=== PATIENT | male | born 1950 | race Caucasian/White ===

== ENCOUNTER → 2017-02-14 | Outpatient (CLI) | payer OTHER, BC ==
[2017-02-14 08:09] LABS: BASO % 0.8 %; BASO ABS # 0.06 K/uL (0-0.2); COMPLETE YES; EOS % 1.8 %; HEMATOCRIT 47.8 % (42-52); IG% 0.3 %; LYMPH % 26.2 %; LYMPH ABS # 2.06 K/uL (1.2-3.4); MEAN CELL VOLUME 89.7 fL (80-100); MEAN CORPUSCULAR HEMOGLOBIN 30.2 pg (25-34); MEAN CORPUSCULAR HGB CONC 33.7 g/dl (32-36); MONO % 9.9 %; PLATELET COUNT 264 K/uL (130-400); RED BLOOD COUNT 5.33 M/uL (4.7-6.1); WHITE BLOOD COUNT 7.86 K/uL (4.8-10.8)
[2017-02-14 08:45] LABS: ALT/SGPT 19 U/L (12-78); BLOOD UREA NITROGEN 18 mg/dl (7-18); BUN/CREATININE RATIO 11.2 (10-20); CALCIUM 9.2 mg/dl (8.5-10.1); CARBON DIOXIDE 30 mmol/L (21-32); CHLORIDE 104 mmol/L (98-107); CHOLESTEROL 201 mg/dl (0-200); CREATININE 1.57 mg/dl (0.60-1.40); GLUCOSE 89 mg/dl (70-99); POTASSIUM 4.2 mmol/L (3.5-5.1); SODIUM 138 mmol/L (136-145); TRIGLYCERIDES 72 mg/dl (0-150); VERY LOW DENSITY LIPOPROT CALC 14 mg/dl
[2017-02-14 08:58] LABS: ALB/GLOB RATIO 1.2 (0.9-2); ALKALINE PHOSPHATASE 110 U/L (45-117); AST/SGOT 20 U/L (15-37); CHOLESTEROL/HDL RATIO 3.2; HDL CHOLESTEROL 62 mg/dl; LDL CHOLESTEROL CALCULATED 125 mg/dl
== END | disposition home or self-care (01) ==
LOC: C.LAB 07:03
PROVIDERS: ATTEND Internal Medicine
DX: Z12.5 Encounter for screening for malignant neoplasm of prostate (principal); I10 Essential (primary) hypertension

== ENCOUNTER → 2017-03-27 | Outpatient (CLI) | payer OTHER, BC ==
[2017-03-27 10:18] LABS: BLOOD UREA NITROGEN 17 mg/dl (7-18); CALCIUM 9.2 mg/dl (8.5-10.1); CARBON DIOXIDE 29 mmol/L (21-32); CREATININE 1.34 mg/dl (0.60-1.40); GLUCOSE 89 mg/dl (70-99); POTASSIUM 4.3 mmol/L (3.5-5.1); SODIUM 139 mmol/L (136-145)
== END | disposition home or self-care (01) ==
LOC: C.LAB 08:59
PROVIDERS: ATTEND Internal Medicine
DX: I10 Essential (primary) hypertension (principal)

== ENCOUNTER 2020-05-20 15:03 | Inpatient (IN) ==
[2020-05-20] MEDS ORDERED: ASPIRIN CHEW 324 MG PO STA (15:21)
[2020-05-20] MEDS ORDERED: SODIUM CHLORIDE 0.9% 500 ML IV STA (15:21)
--- NOTE | 2020-05-20 15:25 | Emergency Department Note ---
Impression & Plan Acute ST elevation myocardial infarction (STEMI), Acute NJ, inferior wall, Myocardial infarction, posterior wall ED Provider Note NAME: RIGOBERTO STOLL AGE: 69 SEX: M : 1950 ARRIVES VIA: Walk-In INFORMANT: Patient, ED PROVIDER(S): Florian Swift DO CHIEF COMPLAINT: Chest pain HPI: The patient is a 69-year-old male who presented to the emergency department via triage for an evaluation of chest pain. The patient has been having intermittent chest pain over the course of the last 10 days. He presented to the emergency department with his significant other. Apparently the patient has a history of going on walks and exercising frequently with his significant other. Over the course of the last week and a half the patient's been noticing decrease exercise tolerance as well as fatigue. He is also noticed that he has been developing chest pain which is retrosternal over the course the last 10 days associated with exertion and relieved with rest. He notices some discomfort in his left jaw as well as his left shoulder. He denies having any back pain. He describes the pain as a pressure which is intermittent. He went for a long walk with his significant other today and afterwards noticed that he was having chest pain which did not relieve. The patient states that he has been compliant with his outpatient medication regimen. He does have a history of reflux and initially thought that was the cause of his symptoms. He states the pain was moderate to severe with ambulation but at this time is approxi mately 1-2 on a scale of 10 and describes it is mild. He denies having any fever or cough. He denies any recent traveling. He denies any shortness of breath at this time. ROS: See above HPI for pertinent positives & negatives. A total of 10 systems reviewed and were otherwise negative. PAST MEDICAL HISTORY: See Below PAST SURGICAL HISTORY: See Below FAMILY HISTORY: See Below SOCIAL HISTORY: See Below HOME MEDICATIONS: See Below ALLERGIES: See Below VITALS: See Below PHYSICAL EXAMINATION: GENERAL: The patient is awake and alert. He is somewhat anxious appearing. EYES: The conjunctivae are clear. The pupils are round and reactive. EARS, NOSE, MOUTH AND THROAT: The nose is without any evidence of any deformity. NECK: The neck is nontender and supple. RESPIRATORY: Normal respiratory effort is noted there is no evidence of wheezing rhonchi or rales CARDIOVASCULAR: Regular rate and rhythm noted there no murmurs rubs or gallops normal S1 normal S2. GASTROINTESTINAL: The abdomen is soft. Abdomen is nontender. MUSCULOSKELETAL/EXTREMITIES: There is no evidence of gross deformity full range of motion is noted in the hips and shoulders. SKIN: There is no obvious evidence of any rash. No significant pedal edema was noted. NEUROLOGIC: Patient is awake alert and oriented x3. MEDICAL DECISION MAKING: The patient is a 69-year-old male who presented to the emergency department for an evaluation of chest pain. The patient has been experiencing intermittent episodes of chest pain over the last 10 days. The pain is been worsening with exertion. According to his significant other he is also been having easy f atigue and does appear to be experiencing more discomfort than he is relating in the emergency department today. Normally the pain resolves with rest. Today the patient went on his normal hike with his significant other but afterwards the chest pain did not resolve. He was brought back to his room C4 and an EKG was done. I made the patient a heart alert immediately after reading the patient's EKG which revealed an inferior posterior wall NJ. The patient did have Q waves which does fit with a subacute presentation. His troponin was elevated. He was treated with aspirin in the emergency department. He was also given Brilinta and heparin after evaluation by the lithographer helper. I discussed the patient's laboratory and radiographic studies with him. I also discussed his case with the lithographer helper. He was immediately taken to the cardiac catheterization lab. He was agreeable with the plan. Triage Nursing notes reviewed. Prior medical records reviewed Vital Signs: reviewed and remarkable for low blood pressure. Differential diagnosis: Cardiac ischemia, aortic dissection, pulmonary embolism, pneumothorax, pneumonia, pericarditis, myocarditis, esophageal rupture, GERD, cholecystitis, pancreatitis, musculoskeletal, as well as other pathologies. ER treatment provided: See below Diagnostics interpreted by me: ECG: EKG revealed normal sinus rhythm at 73 bpm. Inferior Q waves were noted with acute ST segment elevation in the inferior leads. There is also reciprocal changes in the high lateral leads. There is also ST segment depression in the anterior leads with upright T waves. I do feel this is consistent with an inferior posterior wall myocardial infarction which is acute to subacute. No previous tracing was available. Cardiac Monitoring: An order was placed for continuous cardiac monitoring. The monitor shows a rate of 88 bpm with sinus rhythm. Laboratory studies: As stated above and show below. Imaging studies: See below Consultation(s): Dr. Luo responded to the heart alert. He was at the bedside evaluating the patient and received signout from myself. The patient was felt to be a good candidate for cardiac catheterization. ED COURSE: Procedures: none PDMP:reviewed and no issues Critical Care: I have personally spent greater than 35 minutes of critical care time in the direct management of this patient. This includes bedside care, interpretation of diagnostic studies, and testing, discussion with consultants, patient, and family members, and other required patient management activities. This 35 minutes is in excess of all separately billable procedures. Past Med/Surg History Medical History (Updated 05/20/20 @ 20:23 by Florian Swift DO) Acid reflux Hypertension Male erectile disorder of organic origin Screening PSA (prostate specific antigen) Syncope Tubular adenoma of colon Surgical History History of colonoscopy History of tonsillectomy Family History Mother Colon cancer Father Cardiac disorder Hypertension Myocardial infarction Father Cardiac disorder Hypertension Myocardial infarction Brother Cardiac disorder Hypertension Social History Smoking Status: Never smoker Hx Alcohol Use: No Hx Substance Use: No Preferred Language: Luxembourger Hearing Ability: Normal Veterans Adviser Required: No Beliefs That Will Affect Care: None marital status: Current Living Situation: Alone current occupational status: retired Other Information That Helps Us Care for You: No Feels Safe at Home: Yes Safety Concerns: Feels Safe At This Time caffeine: Yes Seatbelt Use: always Sunscreen Use: No Assistive Devices: None Allergies Allergies Allergy/AdvReac Type Severity Reaction Status Date / Time Sulfa (Sulfonamide Allergy Unknown Unknown Verified 05/20/20 15:51 Antibiotics) Home Meds Home Medications Medication Instructions Recorded Confirmed ascorbic acid (vitamin C) 500 mg 500 mg PO QAM 04/25/20 05/20/20 tablet aspirin 81 mg PO QAM 05/20/20 05/20/20 losartan 12.5 mg PO QAM 05/20/20 05/20/20 Results & Data (ED) Vital Signs Vital Signs - 24 hr 05/20/20 15:10 05/20/20 15:58 05/20/20 17:37 Temperature 36.3 C L Temperature Source Temporal Artery Scan Pulse Rate 78 85 Pulse Rate from SpO2 Sensor Respiratory Rate 18 18 Blood Pressure 183/114 H Blood Pressure Mean 137 Pulse Oximetry 100 Oxygen Delivery Method Room Air Nasal Cannula Oxygen Flow Rate 2 Sepsis Recent Fever Within 48 Hours No Sepsis New/Unexplained Change in Mental Status N/A Sepsis Action Taken by Nursing No Action Required 05/20/20 17:38 05/20/20 17:40 Temperature Temperature Source Pulse Rate 72 77 Pulse Rate from SpO2 Sensor 77 Respiratory Rate 20 17 Blood Pressure 124/86 Blood Pressure Mean 98 Pulse Oximetry 100 Oxygen Delivery Method Oxygen Flow Rate Sepsis Recent Fever Within 48 Hours Sepsis New/Unexplained Change in Mental Status Sepsis Action Taken by Group Home Medications Current Medication List: was personally reviewed by me Laboratory Data Attestation: I reviewed the patient's lab results. Result diagrams: 05/20/20 15:28 05/20/20 15:28 Lab Results 05/20/20 05/20/20 05/20/20 Range/Units 15:28 15:28 15:28 WBC 13.38 H (4.8-10.8) K/uL RBC 5.13 (4.7-6.1) M/uL Hgb 15.7 (14.0-18.0) g/dL Hct 45.5 (42-52) % MCV 88.7 (80-100) fL MCH 30.6 (25-34) pg MCHC 34.5 (32-36) g/dL RDW Std Deviation 43.4 (36.4-46.3) fL RDW Coeff of Park 13.3 (11.5-14.5) % Plt Count 259 (130-400) K/uL MPV 10.0 (7.4-10.4) fL Immature Gran % (Auto) 0.1 % Neut % (Auto) 79.4 % Lymph % (Auto) 12.1 % Hendricks % (Auto) 8.1 % Eos % (Auto) 0.1 % Baso % (Auto) 0.2 % Neut # (Auto) 10.60 H (1.4-6.5) K/uL Lymph # (Auto) 1.62 (1.2-3.4) K/uL Hendricks # (Auto) 1.09 H (0.11-0.59) K/uL Eos # (Auto) 0.02 (0-0.5) K/uL Baso # (Auto) 0.03 (0-0.2) K/uL Immature Gran # (Auto) 0.02 (0.00-0.02) K/uL PT 9.9 (9.0-12.0) Seconds INR 1.0 (0.9-1.1) APTT 24.8 (21.0-31.0) Seconds PTT Ratio 0.9 Activ Coag Time Kaolin (94-140) SECONDS Sodium 139 (136-145) mmol/L Potassium 3.6 (3.5-5.1) mmol/L Chloride 104 (98-107) mmol/L Carbon Dioxide 28 (21-32) mmol/L Anion Gap 7.0 (3-11) BUN 15 (7-18) mg/dl Creatinine 1.45 H (0.6-1.4) mg/dl Est Cr Clr Drug Dosing 49.5 ml/min Est GFR ( Amer) 56.1 Est GFR (Non-Af Amer) 48.4 BUN/Creatinine Ratio 10.3 (10-20) Glucose 135 H (70-99) mg/dl Calcium 9.6 (8.5-10.1) mg/dl Total Bilirubin 0.7 (0.2-1) mg/dl AST 160 H (15-37) U/L ALT 37 (12-78) U/L Alkaline Phosphatase 128 H (45-117) U/L Troponin I 16.600 H* (0-0.045) ng/ml Total Protein 7.2 (6.4-8.2) gm/dl Albumin 4.1 (3.4-5.0) gm/dl Globulin 3.1 (2.5-4.0) gm/dl Albumin/Globulin Ratio 1.3 (0.9-2) Lipase 74 (73-393) U/L 05/20/20 Range/Units 16:29 WBC (4.8-10.8) K/uL RBC (4.7-6.1) M/uL Hgb (14.0-18.0) g/dL Hct (42-52) % MCV (80-100) fL MCH (25-34) pg MCHC (32-36) g/dL RDW Std Deviation (36.4-46.3) fL RDW Coeff of Park (11.5-14.5) % Plt Count (130-400) K/uL MPV (7.4-10.4) fL Immature Gran % (Auto) % Neut % (Auto) % Lymph % (Auto) % Hendricks % (Auto) % Eos % (Auto) % Baso % (Auto) % Neut # (Auto) (1.4-6.5) K/uL Lymph # (Auto) (1.2-3.4) K/uL Hendricks # (Auto) (0.11-0.59) K/uL Eos # (Auto) (0-0.5) K/uL Baso # (Auto) (0-0.2) K/uL Immature Gran # (Auto) (0.00-0.02) K/uL PT (9.0-12.0) Seconds INR (0.9-1.1) APTT (21.0-31.0) Seconds PTT Ratio Activ Coag Time Kaolin 312 H (94-140) SECONDS Sodium (136-145) mmol/L Potassium (3.5-5.1) mmol/L Chloride (98-107) mmol/L Carbon Dioxide (21-32) mmol/L Anion Gap (3-11) BUN (7-18) mg/dl Creatinine (0.6-1.4) mg/dl Est Cr Clr Drug Dosing ml/min Est GFR ( Amer) Est GFR (Non-Af Amer) BUN/Creatinine Ratio (10-20) Glucose (70-99) mg/dl Calcium (8.5-10.1) mg/dl Total Bilirubin (0.2-1) mg/dl AST (15-37) U/L ALT (12-78) U/L Alkaline Phosphatase (45-117) U/L Troponin I (0-0.045) ng/ml Total Protein (6.4-8.2) gm/dl Albumin (3.4-5.0) gm/dl Globulin (2.5-4.0) gm/dl Albumin/Globulin Ratio (0.9-2) Lipase (73-393) U/L Administered Medications Dopamine HCl/Dextrose (Dopamine / D5w) 400 mg in 250 mls @ 7.078 mls/hr IV .Q24H PATIENCE; Protocol Stop: 06/19/20 19:14 Last Admin: 05/20/20 19:21 Dose: 2.5 mcg/kg/min, 7.1 mls/hr Documented by: [id number] Cosigned by: [id number] Discontinued Medications Aspirin (Aspirin Chew 324 Mg) 324 mg PO NOW STA Stop: 05/20/20 15:22 Last Admin: 05/20/20 15:29 Dose: 324 mg Documented by: [id number] Atropine Sulfate (Atropine Sulfate 0.1 Mg/Ml 10ml Syr) Confirm Administered Dose 1 mg IV .STK-MED ONE Stop: 05/20/20 19:10 Last Admin: 05/20/20 19:20 Dose: 1 mg Documented by: [id number] Dopamine HCl/Dextrose (Dopamine 400mg / 250ml D5w (Operating Room Nurse Use Only)) Confirm Administered Dose 400 mg .ROUTE .STK-MED ONE Stop: 05/20/20 16:47 Last Admin: 05/20/20 17:14 Dose: 5 mg.per.kg Documented by: [id number] Dopamine HCl/Dextrose (Dopamine 400mg / 250ml D5w) Confirm Administered Dose 400 mg IV .STK-MED ONE Stop: 05/20/20 19:15 Last Admin: 05/20/20 19:19 Dose: Not Given Documented by: [id number] Fentanyl Citrate (Fentanyl Citrate 100 Mcg/2 Ml Vial) Confirm Administered Dose 100 mcg .ROUTE .STK-MED ONE Stop: 05/20/20 15:40 Last Increment: 05/20/20 17:14 Dose: 75 mcg Documented by: [id number] Heparin Sodium (Porcine) (Heparin Sod (Porcine) 1000 Unit/Ml 10 Ml Vial) Confirm Administered Dose 10,000 units .ROUTE .STK-MED ONE Stop: 05/20/20 15:32 Last Admin: 05/20/20 17:07 Dose: 10,000 units Documented by: [id number] Cosigned by: [id number] Heparin Sodium (Porcine) (Heparin (Porcine) 1000 Unit/Ml 10 Ml (Operating Room Nurse Use Onl y)) Confirm Administered Dose 10,000 units .ROUTE .STK-MED ONE Stop: 05/20/20 15:40 Last Admin: 05/20/20 17:14 Dose: 1,000 units Documented by: [id number] Heparin Sodium/Sodium Chloride (Heparin In Nss Infusion 1000 Unit/500 Ml (2 U/Ml) Bag) Confirm Administered Dose 3,000 units IV .STK-MED ONE Stop: 05/20/20 15:41 Last Admin: 05/20/20 17:14 Dose: 3,000 units Documented by: [id number] Sodium Chloride (Nss) 500 mls @ 999 mls/hr IV .Q31M STA Stop: 05/20/20 15:51 Last Admin: 05/20/20 15:37 Dose: 999 mls/hr Documented by: [id number] Midazolam HCl (Midazolam Hcl 1 Mg/Ml 2ml Vial) Confirm Administered Dose 2 mg .ROUTE .STK-MED ONE Stop: 05/20/20 15:40 Last Admin: 05/20/20 17:14 Dose: 2 mg Documented by: [id number] Nicardipine HCl (Nicardipine Hcl Inj 2.5 Mg/Ml 10 Ml Amp) Confirm Administered Dose 25 mg .ROUTE .STK-MED ONE Stop: 05/20/20 15:40 Last Admin: 05/20/20 17:07 Dose: 25 mg Documented by: [id number] Nitroglycerin/Dextrose (Nitroglycerin/D5w 100mcg/Ml 20ml Syr) Confirm Administered Dose 2,000 mcg .ROUTE .STK-MED ONE Stop: 05/20/20 15:41 Last Admin: 05/20/20 17:14 Dose: 2,000 mcg Documented by: [id number] Ondansetron HCl (Ondansetron Inj 2 Mg/Ml 2 Ml Vial) Confirm Administered Dose 4 mg .ROUTE .STK-MED ONE Stop: 05/20/20 16:50 Last Admin: 05/20/20 17:28 Dose: 4 mg Documented by: [id number] Ticagrelor (Ticagrelor 90 Mg Tab) Confirm Administered Dose 180 mg PO .STK-MED ONE Stop: 05/20/20 15:32 Last Admin: 05/20/20 17:03 Dose: 180 mg Documented by: [id number] Imaging Data Radiologist's Impression: Patient: RIGOBERTO STOLL Date: 05/20/20#: [id number]: [id number] [facility]:[id number]: Date: 1950[facility] Zip: [place], [place] [address]Ruc: 69Location: EDSex: MRoom/Bed:Att Phy:Diagnosis: CHEST PAIN x12 HOURSPri Phy: Dallas Vincent, III, MDService Date: 05/20/20Fam Phy:Interpreting Phy: Juan Sparrow MDAdmit Phy: Ordering Phy: Florian Swift DO cc: ~ XR chest 1V portable CLINICAL HISTORY: Atypical chest pain COMPARISON STUDY: No previous studies for comparison. FINDINGS: The heart is normal in size. There is aortic tortuosity/ectasia. There is no failure. There is no focal pulmonary consolidation. There are no pleural effusions.[ IMPRESSION: No active disease in the chest. ACT 112: Negative or not required by law. Electronically signed by: Juan Sparrow M.D. 05/20/2020 3:46 PM Dictated: 05/20/20 1545Transcribed: 05/20/20 1545 Discharge Plan Visit Data Chief Complaint: Chest Pain Stated Complaint: CHEST PAIN x12 HOURS ED Provider: Florian Swift Discharge Problem: Acute ST elevation myocardial infarction (STEMI), Acute [place], inferior wall, Myocardial infarction, posterior wall Patient Disposition: Admitted As Inpatient Condition: Good Discharge Instructions Interventions: ED Discharge Assessment Last Done: 05/20/20 15:58 Discharge Problem: Acute ST elevation myocardial infarction (STEMI) Qualifiers: Involved coronary artery: unspecified coronary artery Qualified Code(s): I21.3 - ST elevation (STEMI) myocardial infarction of unspecified site
[2020-05-20] MEDS ORDERED: HEPARIN SOD (PORCINE) 1000 UNIT/ML ONE (15:31)
[2020-05-20] MEDS ORDERED: TICAGRELOR 90 MG TAB PO ONE (15:31)
[2020-05-20 15:38] LABS: Basophils # (auto) 0.03 K/uL (0-0.2); Basophils % (auto) 0.2 %; Eosinophils # (auto) 0.02 K/uL (0-0.5); Eosinophils % (auto) 0.1 %; Hematocrit (blood only) 45.5 % (42-52); Hemoglobin 15.7 g/dL (14.0-18.0); Immature Granulocytes # (auto) 0.02 K/uL (0.00-0.02); Immature Granulocytes % (auto) 0.1 %; Lymphocytes # (auto) 1.62 K/uL (1.2-3.4); Lymphocytes % (auto) 12.1 %; Mean Corpuscular Hemoglobin 30.6 pg (25-34); Mean Corpuscular Hgb Conc 34.5 g/dL (32-36); Mean Corpuscular Volume 88.7 fL (80-100); Monocytes # (auto) 1.09 K/uL (0.11-0.59); Monocytes % (auto) 8.1 %; Neutrophils % (auto) 79.4 %; Platelet Count 259 K/uL (130-400); RDW Coefficient of Variation 13.3 % (11.5-14.5); RDW Standard Deviation 43.4 fL (36.4-46.3); Red Blood Count 5.13 M/uL (4.7-6.1); White Blood Count 13.38 K/uL (4.8-10.8)
[2020-05-20] MEDS ORDERED: HEPARIN (PORCINE) 1000 UNIT/ML 10 ML (CATH LAB USE ONLY) ONE (15:39)
[2020-05-20] MEDS ORDERED: fentaNYL citrate 100 MCG/2 ML VIAL ONE (15:39)
[2020-05-20] MEDS ORDERED: MIDAZOLAM HCL 1 MG/ML 2ML VIAL ONE (15:39)
[2020-05-20] MEDS ORDERED: niCARdipine HCL INJ 2.5 MG/ML 10 ML AMP ONE (15:39)
[2020-05-20] MEDS ORDERED: NITROGLYCERIN/D5W 100MCG/ML 20ML SYR ONE (15:40)
--- NOTE | 2020-05-20 15:47 | XRay Report ---
XR chest 1V portable CLINICAL HISTORY: Atypical chest pain COMPARISON STUDY: No previous studies for comparison. FINDINGS: The heart is normal in size. There is aortic tortuosity/ectasia. There is no failure. There is no focal pulmonary consolidation. There are no pleural effusions.[ IMPRESSION: No active disease in the chest. ACT 112: Negative or not required by law. Electronically signed by: Juan Sparrow M.D. 05/20/2020 3:46 PM
[2020-05-20 15:49] LABS: Partial Thromboplastin Ratio 0.9; Partial Thromboplastin Time 24.8 Seconds (21.0-31.0); Prothrombin Time 9.9 Seconds (9.0-12.0)
[2020-05-20 15:57] LABS: Albumin Level 4.1 gm/dl (3.4-5.0); BUN Creatinine Ratio 10.3 (10-20); Calcium 9.6 mg/dl (8.5-10.1); Creatinine Clr Calc Pharmacy 49.5 ml/min; Est GFR (African American) 56.1; Est GFR (Non-African American) 48.4; Potassium 3.6 mmol/L (3.5-5.1)
--- NOTE | 2020-05-20 16:02 | Pre Anesthesia Assessment ---
Date of Service May 20, 2020 Pre Sedation Assessment Vital Signs Temp Pulse Resp BP Pulse Ox 05/20/20 15:10 97.3 F L 78 18 183/114 H 100 Cardiovascular RRR, no murmur, no edema Respiratory normal respiratory effort, lungs clear to auscultation Pre-Sedation Airway Assessment Smoking Status: Never smoker Hx Sleep Apnea: No Hx Difficult Intubation: No Short, Thick Neck: No Thyromental Distance: > or= 3.5 Finger Breadths Oral Cavity: + WNL Mallampati Class: III ASA: ASA3 Procedure Planning Contraindications for Sedation: none Current Medications Reviewed: Yes Notes The planned sedation has been discussed with the patient. Informed Consent was obtained. I have identified the patient, determined the appropriateness of sedation and have assessed the patient immediately prior to the procedure. All medicine(s) and interventions are by my order.
--- NOTE | 2020-05-20 16:05 | Cardiology Consultation ---
Date of Consultation May 20, 2020 Assessment & Plan (1) Acute DC: Presentation consistent with inferior STEMI and recommend proceeding with emergent cardiac catheterization and likely primary PCI. No apparent contraindications to procedure. Discussed risks, benefits, alternatives of procedure with patient and they are willing to proceed. Given IV heparin and ticagrelor 180 mg in the ED. Further recommendations pending findings of coronary angiography. History of Present Illness History of Present Illness 69-year-old man here with acute chest pain and ECG concerning for acute DC. Patient seen emergently in the ED after heart alert activated on arrival. No prior cardiac history. Cardiac risk factors include hypertension, dyslipidemia and family history of premature CAD. Other medical issues include GERD and colonic polyps. Chest pain has been intermittent for the last week. Describes burning chest discomfort associated with belching. Pain has been persistent all day today, partially relieved with Tylenol. Chest pain at time of arrival 2-05/09. Hypertensive to the 200. EKG showed inferior ST elevations Allergies Allergy/AdvReac Type Severity Reaction Status Date / Time Sulfa (Sulfonamide Allergy Unknown Unknown Verified 05/20/20 15:51 Antibiotics) Home Medications Medication Instructions Recorded Confirmed Type ascorbic acid (vitamin C) 500 mg 500 mg PO QAM 04/25/20 05/20/20 History tablet aspirin 81 mg PO QAM 05/20/20 05/20/20 History losartan 12.5 mg PO QAM 05/20/20 05/20/20 History Patient History Medical History (Updated 05/20/20 @ 16:05 by Gera Luo MD) Acid reflux Hypertension Male erectile disorder of organic origin Screening PSA (prostate specific antigen) Syncope Tubular adenoma of colon Surgical History History of colonoscopy History of tonsillectomy Family History Mother Colon cancer Father Cardiac disorder Hypertension Myocardial infarction Father Cardiac disorder Hypertension Myocardial infarction Brother Cardiac disorder Hypertension Social History Smoking Status: Never smoker Hx Alcohol Use: No Hx Substance Use: No Preferred Language: Turkmen Hearing Ability: Normal marital status: Current Living Situation: Spouse current occupational status: retired Feels Safe at Home: Yes caffeine: Yes Seatbelt Use: always Sunscreen Use: No Review of Systems Review of Systems: Not obtained in the setting of urgent situation Physical Exam Physical Exam: General: Comfortable HEENT: Sclerae anicteric, Mask in place Lungs: Clear to auscultation bilaterally Cardiac: Regular rate and rhythm, no murmurs. Vascular: 2+ radial Abdomen: Soft, nontender Extremities: Well perfused, no peripheral edema Neuro: Nonfocal Psych: Alert orient x3, normal affect and mood Results & Data ([facility]) Vital Signs (Past 12 Hours) Vital Signs Temp Pulse Resp BP Pulse Ox 05/20/20 15:10 97.3 F L 78 18 183/114 H 100 PG Care Time/CCT Total # of Minutes Spent Total Time Spent with Patient: Total time spent is greater than 50% in coordination of care (as documented) at patient's floor/unit and/or counseling patient: Coding Level of Care Code 44725 Initial Inpt Care Lvl 3 Diagnoses Acute DC I21.9
[2020-05-20 16:13] LABS: Albumin Globulin Ratio 1.3 (0.9-2); Bilirubin,Total 0.7 mg/dl (0.2-1); Globulin 3.1 gm/dl (2.5-4.0); Total Protein 7.2 gm/dl (6.4-8.2); Troponin I 16.6 ng/ml (0-0.045)
[2020-05-20] MEDS ORDERED: DOPamine 400MG / 250ML D5W (Cath Lab Use ONLY) ONE (16:46)
[2020-05-20] MEDS: ONDANSETRON INJ 2 MG/ML 2 ML VIAL ONE ×2 (17:16→17:28)
--- NOTE | 2020-05-20 17:37 | Post Anesthesia Assessment ---
Date of Service May 20, 2020 Post Sedation Assessment Vital Signs Temp Pulse Resp BP Pulse Ox 05/20/20 15:10 97.3 F L 78 18 183/114 H 100 Recovery Score Activity: Moves 4 extremities Respiration: Deep Breath/Cough Circulation: +/-20% PreAnes Value Consciousness: Fully Awake Oxygen Saturation: O2 needed for >90% Discharge Sedation Level of Care: Fast Track Phase II Post Sedation Plan On clinical assessment, the patient appears to have tolerated the sedation without complications. Patient is recovering as anticipated. Patient will continue to be monitored by nursing and may be discharged when sedation discharge criteria are met per below protocol. Upon Completions of procedure up to 15 minutes continue every 5 minute vital signs and the P.A.R. score; then discharge to a Phase I or Fast Track to Phase II per the following guidelines: * Discharge Patient to appropriate Phase II area if PAR is 8 or greater or return to pre- procedure baseline. The post - procedure orders will be as directed. * If PAR score is less than 8 or not return to pre-procedure baseline then patient will follow Phase I monitoring till PAR is reached for Phase II. The Phase I may be done in procedure room or may call to secure a Phase I area. * If naloxone or flumazenil are used for reversal, hold in Phase I for continued monitoring from when last reversal dose was given for a minimum of 60 minutes or longer pending the nurse and/or physician discretion of patient condition before discharge to Phase II. Please call the Sedation Physician to re-evaluate and complete post-note for discharge to Phase II area. Do NOT discharge from procedure sedation or Phase 1 until post- sedation evaluation note is complete by procedure /sedation MD Sedation Discharge Instructions to be given to the patient at discharge to home.
[2020-05-20] MEDS ORDERED: ACETAMINOPHEN 325 MG TAB PO PRN (17:43)
[2020-05-20] MEDS ORDERED: NITROGLYCERIN SL 0.4 MG/TAB TAB SL PRN (17:43)
--- NOTE | 2020-05-20 17:43 | Cardiac Catheterization ---
[facility] Data: [employer]way Engineer Cardiac Status Clinical evaluation leading to the procedure CAD Presenation: STEMI Anginal Classification: CCS IV Heart Failure: No Cardiogenic Shock within 24 Hours: No Cardiac Arrest within 24 Hours: No Imaging Studies Past 6 Months: No Stress Studies Past 6 Months: No Diagnostic Physicians Name: Lavelle Luo MD Status: Emergency Closure Device Percutaneous Entry Location: Radial Closure Device: Radial Band Recommendations: PCI without planned CABG PCI Indication: Immediate PCI for STEMI First Noted: First EKG Lesion Segment Name: mid RCA Culprit Artery: Yes Stenosis Prior to Rx (%): 100 Chronic Total Occlusion: No IVUS: Yes FFR: No Pre-Procedure NATHANIEL Flow: 0 Previously Treated Lesion: No Lesion Complexity: High/C Lesion Length (mm): 15 Thrombus Present: Yes Bifurcation Lesion: No Guidewire Across Lesion: Stenosis Post-Procedure (%): 0 Post-Procedure NATHANIEL Flow: 3 Devices(s) Deployed: Yes Yes Intraprocedure Events Significant Disection: No Perforation: No Cardiac Cath Procedure Full Procedure Date May 20, 2020 Pre-Procedure Diagnosis Pre-Procedure Diagnosis: STEMI AUC Score AUC Score: 9 Post-Procedure Diagnosis Post-Procedure Diagnosis: Severe CAD, Successful PCI and Normal Intracardiac Pressures Procedure(s) Performed Procedure(s) Performed: Coronary Angiography, Left Heart Cath, Drug Eluting Stent and IVUS Patient Partner Lavelle Luo MD Systems Administrator(s) Olga Estimated Blood Loss Estimated Blood Loss: 20 Medication(s) Medication(s): Aspirin, Fentanyl, Heparin, Lidocaine 1%, Nicardipine, Nitroglycerin and Versed Medication(s): Ticagrelor Summary of Findings Indication: STEMI/Heart Alert Access: 6Fr right radial artery Catheters: [place], JR4 guide, diagnostic JR4 Findings: LM -normal caliber, long vessel, luminal irregularities LAD -medium caliber, diffuse severe proximal to mid disease with 90% stenosis at takeoff of D1, 95% at first septal. 80% latemid LAD stenosis. Large bifurcating first diagonal with 80% proximal disease. Circumflex -medium caliber, large high OM1 without significant disease. Mid ci rcumflex with 30% disease. RCA -dominant, normal caliber, 80% ostial, 100% acute on chronic mid occlusion. Right PLB, PDA partially fills via [id number] collaterals. LVEDP - 15 -- PCI -- Antithrombotic therapy: Heparin, ticagrelor Procedure: RCA cannulated with JR4 guide [employer] 50 wire passed across lesion into distal vessel Mid RCA lesion predilated with 2.5 compliant balloon Bryson IVUS catheter placed into distal RCA. Pullback revealed no significant disease in distal and late-mid RCA. Minimally calcified, thrombotic plaque in early mid RCA. Severe stenosis primarily involving ostium. Dilated mid RCA 3.5 x 18 mm [place] drug-eluting stent Ostium of RCA dilated gently with 3.5 stent balloon Stent post-dilated with 3.5 noncompliant balloon IC vasodilators administered for spasm Ostium of RCA stented with 3.5 x 15 mm Xience drug-eluting stent Stent postdilated with 3.5 NC IC vasodilators administered Post procedure NATHANIEL 3 flow, stents well expanded with minimal residual stenosis and no apparent cardiac complications. Intraprocedure course complicated by bradycardia and hypotension requiring 0.5 mg atropine and IV fluids, transient dopamine infusion. Vasopressors weaned off at completion of case. Arterial Closure: TR band Summary: 1. Inferior STEMI/100% acute on chronic mid RCA occlusion 2. Severe non-culprit coronary artery disease -Diffuse proximal to mid LAD up to 95%. Latemid LAD 80%. Proximal D1 80% 3. Normal intracardiac filling pressure 4. Successful PCI of ostial RCA stenosis and mid RCA occlusion with 2 nonoverlapping drug-eluting stents (3.5 x 15 mm Xience, 3.5 x 18 mm Landon). Recommendations: Admit to ICU for continued monitoring Loaded with ticagrelor 180 mg in Roadway Engineer Continue dual-antiplatelet therapy for at least 1 year. Trend troponins until peak, Check Echo Uptitrate beta-julienne/RENE as BP allows High-dose statin Consult cardiac Rehab Plan for staged PCI of LAD, diagonal at some point during hospitalization as renal function allows. Hemodynamics Rest Ao:: 166/94/129 Final Ao: 122/61/84 LV: 126/15 Recommendations Recommendations: PCI without planned CABG Specimens Specimens: None Radiation Exposure (mGy) 1993 Contrast (mls) 145 Fluids (cc crystalloids) Fluids (cc crystalloids): 435 Drains Drains: none Anesthesia moderate [id number] Procedural Complication(s) None Disposition ICU I attest to the content of the Intraoperative Record and any orders documented therein. Any exceptions are noted below. [facility] Card Cath Procedure Codes Cardiac Catheterization Procedure 1: Cardiovascular Cath Procedures: 13692 Coronaries and LHC (+/-LV) Therapeutic Services & Ancillary Proc Procedure 1: Cardiovascular Tx and Anc Procedures: 13843 IV Ultrasound (Coronary or Graft) Moderate Sedation Procedure 1: Sedation/Anesthesia: 68355 Mod Sedation by the same physician;Init15 Min Child Age 5 & Up Procedure 2: Sedation/Anesthesia: 50989 Mod Sedation by the same physician; Ea [id number] Minutes Stenting Procedure 1: Cardiovascular Stent Procedures: 06518 Perc transluminal revascularization of acute sub/total occl, aMI PG Care Time/CCT Total # of Minutes Spent Total Time Spent with Patient: Total time spent is greater than 50% in coordination of care (as documented) at patient's floor/unit and/or counseling patient:
[2020-05-20] MEDS ORDERED: SODIUM CHLORIDE 0.9% 1000ML 1,000 ML IV SCH (17:45)
[2020-05-20] MEDS ORDERED: ICU PROTOCOL FOR HYPERGLYCEMIA PRN (17:48)
--- NOTE | 2020-05-20 17:56 | Post Operative Brief Note ---
Cardiology Brief Post Op Date of Surgery May 20, 2020 Pre & Post Diagnosis Acute NH Procedure -- Rug Dyer Lavelle Luo MD Card Hanger Olga Estimated Blood Loss 15 Findings Consistent with Post-Op Diagnosis 80% ostial RCA, 100% acute on chronic mid RCA LAD - diffuse 90% proximal to mid LAD disease, 80% late-mid disease. Proximal bifurcating D1 with 80% proximal stenosis LM - no disease Circumflex - no disease Successful PCI of ostial RCA and mid RCA with 2 non-overlapping DINESH (3.5 x 15 Xience; 3.5 x 18 Landon). Plan for staged PCI of LAD later this hospitalization Fluids -- Specimens Specimen Description: -- Anesthesia Type RN Sedation Complications none Disposition Accompanied Patient To Recovery: No Disposition: Surgical ICU Overlapping Procedure I was present for: the critical portions of procedure. I was immediately available: during the entire case. Back up surgeon: was not required during procedure.
--- NOTE | 2020-05-20 18:13 | History & Physical Report ---
Date of Service May 20, 2020 Assessment & Plan (1) Acute ST elevation myocardial infarction (STEMI): Appreciate cardiology management ASA, Brillianta, Atorvastatin Metoprolol and losartan with hold parameters (2) Hypotension: BP 80/55 when seen, patient alert and orientated. Discussed with ICU team to appropriately manage. (3) Hypertension: Metoprolol and losartan as above with hold parameters Patient reports usual fluctuating blood pressure usually at home (4) Hypercholesteremia: Lipid panel in AM Atorvastatin 80mg PO HS (5) Acid reflux: None currently. Monitor Admission and Anticipated Discharge Date Admission Date: May 20, 2020 History of Present Illness Chief Complaint: Chest pain Primary Care Provider: Dallas Vincent MD Robert Saba is a 69 year old male with hyperlipidemia (untreated) and hypertension who presents to the ER with chest pain. He reports ongoing inter mittent chest pain worse on exertion for the last 10 days, burning sensation with belching, usually relieved with rest. He has a significant history of GERD and felt his pain was due to this so was initially ignoring it. Today however his chest pain continued and he searched online that persistent chest pain was an emergent reason to come to the the ER. In the ER a heart alert was called due to inferior ST elevations. He was taken emergently to the cardiac microbiological laboratory technician and underwent x2 DINESH to ostial and mid RCA stenosis felt to be the culprit lesion. In addition he has severe non-culprit LAD stenosis up to 95% with plans on going back to the microbiological laboratory technician on later this admission. He is currently in the ICU. He denies any current chest pain, shortness of breath, lightheadedness. Allergies Allergy/AdvReac Type Severity Reaction Status Date / Time Sulfa (Sulfonamide Allergy Unknown Unknown Verified 05/20/20 15:51 Antibiotics) Home Medications Medication Instructions Recorded Confirmed Type ascorbic acid (vitamin C) 500 mg 500 mg PO QAM 04/25/20 05/20/20 History tablet aspirin 81 mg PO QAM 05/20/20 05/20/20 History losartan 12.5 mg PO QAM 05/20/20 05/20/20 History Past Med/Surg History Medical History Acid reflux Hypertension Male erectile disorder of organic origin Screening PSA (prostate specific antigen) Syncope Tubular adenoma of colon Surgical History History of colonoscopy History of tonsillectomy Family History Mother Colon cancer Father Cardiac disorder Hypertension Myocardial infarction Father Cardiac disorder Hypertension Myocardial infarction Brother Cardiac disorder Hypertension Social History Smoking Status: Never smoker Hx Alcohol Use: No Hx Substance Use: No Preferred Language: Swedish Communication Ability: Effective Hearing Ability: Normal Spot Welder Line Required: No Beliefs That Will Affect Care: None marital status: Single Current Living Situation: Alone current occupational status: retired Other Information That Helps Us Care for You: No Feels Safe at Home: Yes Safety Concerns: Feels Safe At This Time caffeine: Yes Seatbelt Use: always Sunscreen Use: No Assistive Devices: Glasses Review of Systems Review of Systems: All systems reviewed & are unremarkable except as noted in HPI & below Physical Exam Constitutional: well developed and well nourished; no acute distress Eyes: + anicteric sclerae; normal pupil size ENMT: external ear and nose normal, oropharynx normal Neck: trachea midline Respiratory: normal respiratory effort, lungs clear to auscultation Cardiovascular: RRR, no murmur, no edema (quiet HS) Gastrointestinal (Abdomen): normal bowel sounds, soft, nontender, no hepatosplenomegaly Musculoskeletal: no cyanosis or clubbing, extremities motor strength 5/5 Skin: no rashes, warm and dry Neurologic: awake; not confused Psychiatric: A+Ox3, euthymic affect Results & Data Results & Data ([facility]) Vital Signs (Past 12 Hours) Vital Signs Temp Pulse Pulse Resp BP BP Pulse Ox 05/20/20 18:00 66 19 100 05/20/20 17:53 71 18 109/72 100 05/20/20 17:50 77 23 100 05/20/20 17:49 36.6 C 76 18 124/86 100 05/20/20 17:40 77 17 100 05/20/20 17:38 72 20 124/86 05/20/20 17:37 85 18 05/20/20 15:10 36.3 C L 78 18 183/114 H 100 Diagnostic Findings XR chest 1V portable IMPRESSION: No active disease in the chest. ECG Indication: chest pain Rate (beats per minute): 73 Rhythm: sinus with SA Findings: + ST depression (reciprocal anterior) and + ST elevation (Inferior) Comparison ECG Date: from (September 14, 2001) Change: the following changes noted (ST elevations are new) Code Status & VTE Plan Code Status Full VTE Prophylaxis Plan VTE Prophylaxis will be ordered: Yes PG Care Time/CCT Total # of Minutes Spent Total Time Spent with Patient: Total time spent is greater than 50% in coordination of care (as documented) at patient's floor/unit and/or counseling patient: Coding Level of Care Code 40182 Initial Inpt Care Lvl [address] elevation myocardial infarction (STEMI) I21.3 Hypotension I95.9 Hypertension I10 Hypercholesteremia E78.00 Acid reflux K21.9
[2020-05-20] MEDS ORDERED: ATROPINE SULFATE 0.1 MG/ML 10ML SYR IV STA (19:09)
[2020-05-20] MEDS ORDERED: ATROPINE SULFATE 0.1 MG/ML 10ML SYR IV ONE (19:09)
[2020-05-20] MEDS ORDERED: STAT IV Infusion **Titration per Protocol STA (19:09)
[2020-05-20] MEDS ORDERED: DOPamine 400MG / 250ML D5W IV ONE (19:14)
[2020-05-20] MEDS: DOPamine / D5W 400 MG/250 ML BAG IV SCH (19:21)
--- NOTE | 2020-05-20 19:34 | Critical Care Consultation ---
Date of Consultation May 20, 2020 Assessment & Plan (1) Admitted to intensive care unit: Reason Critically Ill: 69-year-old male with acute inferior ST segment elevation myocardial infarction who is status post PTCA with DINESH x2 requiring close hemodynamic monitoring status post coronary intervention. NEURO - * CAM ICU: Negative CARDIAC/VASCULAR - * Acute Inferior STEMI s/p PTCA w/ DINESH x1 to the ostial RCA, and x1 to the RCA: * Required Atropine x1 and temporary dopamine gtt intraprocedurally. * Episode of profound hypotension upon arrival in the ICU. * Assessed at bedside and was with change in mentation at this time. * Patient bolused with 1 L normal saline. * Received 0.5 mg IV atropine x1. * Spoke with Dr. Luo. Patient to be placed on dopamine drip as needed. * Patient to undergo repeat cath during hospitalization for likely need for intervention to the LAD. * Continue with IV fluids for preload support. * Dopamine as needed for bradycardia. * A.m. echocardiogram. * Trend troponins. * Monitor on telemetry. RESPIRATORY - * No history of pulmonary disease. * Saturating well on room air. GI/NUTRITION - * AHA diet RENAL/LYTES - * No significant electrolyte derangements. * IVF: NSS at 100 mL's per hour. - * No concerns at this time. ENDO - * No history of diabetes or thyroid disease. * BSGs per unit protocol. ISS --> gtt per unit policy. HEME - * Stable H&H. ID - * No concern for infectious contribution at this time. LINES/IV ACCESS - * PIVs x2 DVT PROPHYLAXIS - * Hold status post intervention. * SCDs I have personally spent 55 minutes of critical care time in the direct management of this patient. This is a life/limb threatening event. This includes time spent evaluating patient, direct bedside care, chart review, placing orders, interpretation of diagnostic studies, discussion with consultants, patient, and family members, as well as other required patient management activities. This time is exclusive of all separately billable procedures, and teaching time and separate from and in addition to any other critical care service time. Thank you for allowing us to participate in the care of this patient. Please refer to my attending physician's documentation for any further recommendations. (2) Acute ST elevation myocardial infarction (STEMI): (3) Myocardial infarction, posterior wall: (4) Acute IL, inferior wall: (5) Hypercholesteremia: (6) Hypertension: (7) Hypotension: (8) S/P PTCA (percutaneous transluminal coronary angioplasty): (9) S/P drug eluting coronary stent placement: History of Present Illness Attending Physician: Derrell Mitchell MD History of Present Illness Patient is a 69-year-old male with a significant past medical history of hypertension and hypercholesterolemia who presented to the emergency department after approximately 10 days of intermittent chest pain. Today, while on a walk, the patient developed chest pain with associated nausea. Upon presentation to the emergency department, the patient was noted to have an acute inferior ST segment elevation IL. Heart alert was called the patient was taken emergently to the catheterization suite where he successfully underwent drug-eluting stent placement x1 to the RCA and x1 to the ostial RCA. Patient did require one-time dose of atropine and dopamine drip intraprocedurally. Status post intervention, the patient is without complaints of chest pain. Dopamine drip was able to be titrated off. Upon my evaluation at bedside, the patient had recently arrived to the ICU. Patient's friend present at the nursing station as she was concerned for something being wrong. Upon urgent evaluation, the patient was noted to be significantly hypotensive with systolic blood pressures in the 50s. Heart rate was in the 50s. Patient was lethargic, but would arouse to conversation and answer questions appropriately otherwise. Patient moves all 4 extremities appropriately and is without any other neurological findings. Orders placed for IV fluids as well as atropine. He is without complaints of chest pain at this time. Allergies Allergy/AdvReac Type Severity Reaction Status Date / Time Sulfa (Sulfonamide Allergy Unknown Unknown Verified 05/20/20 15:51 Antibiotics) Home Medications Medication Instructions Recorded Confirmed Type ascorbic acid (vitamin C) 500 mg 500 mg PO QAM 04/25/20 05/20/20 History tablet aspirin 81 mg PO QAM 05/20/20 05/20/20 History losartan 12.5 mg PO QAM 05/20/20 05/20/20 History Patient History Medical History (Updated 05/21/20 @ 04:50 by Sung Gutierrez PA-C) Acid reflux Hypertension Male erectile disorder of organic origin Screening PSA (prostate specific antigen) Syncope Tubular adenoma of colon Surgical History (Updated 05/21/20 @ 04:50 by Sung D. Brenda, PA-C) History of colonoscopy History of tonsillectomy Family History Mother Colon cancer Father Cardiac disorder Hypertension Myocardial infarction Father Cardiac disorder Hypertension Myocardial infarction Brother Cardiac disorder Hypertension Social History Smoking Status: Never smoker Hx Alcohol Use: No Hx Substance Use: No Preferred Language: Grenadian Hearing Ability: Normal Collar Sewer Required: No Beliefs That Will Affect Care: None marital status: Current Living Situation: Alone current occupational status: retired Other Information That Helps Us Care for You: No Feels Safe at Home: Yes Safety Concerns: Feels Safe At This Time caffeine: Yes Seatbelt Use: always Sunscreen Use: No Assistive Devices: Glasses Review of Systems Review of Systems: A complete 10 point review of systems was reviewed with the patient with pertinent positives and negatives as per history of present illness. All else were negative. Physical Exam Physical Exam: VITAL SIGNS - Vital signs and nursing notes were reviewed. GENERAL - 69-year-old male appearing his stated age who is in moderate distress. Lethargic, but does answer questions appropriately. HEAD - NC/AT. EYES - PERRL with EOMI bilaterally. Sclera anicteric. EARS - No deformities of external structures noted on gross examination bilaterally. NOSE - Midline and without cyanosis. No epistaxis or purulent drainage noted. MOUTH/OROPHARYNX - Without perioral cyanosis. Buccal mucosa pink and moist and without leukoplakia. Tongue midline with equal elevation of palate bilaterally. Good dentition noted. NECK - Neck with FROM. Supple to palpation. LUNGS - Chest wall symmetric without accessory muscle use, intercostals retractions, or central cyanosis. Normal vesicular breath sounds CTA B/L. No wheezes, rales, or rhonchi appreciated. CARDIAC - RRR with S1/S2. No murmur, rubs, or gallops appreciated. No reproducible tenderness to palpation appreciated over the anterior chest wall. ABDOMEN - Abdominal contour flat without pulsations or visible masses. BS normoactive all four quadrants. No tenderness, palpable masses, hepatosplenomegaly, or ascites noted. EXTREMITIES - No clubbing or peripheral cyanosis. No pretibial edema present. +3/5 radial and dorsalis pedis pulses palpated throughout. +5/5 strength noted in UE/LE bilaterally. NEUROLOGIC - Cranial nerves II through XII grossly intact. Sensory intact to light touch throughout. PSYCH - A&Ox3 and cooperates fully with examiner. Pt is very pleasant and interacts well with examiner. Results & Data Results & Data ([facility]) Vital Signs (Past 12 Hours) Vital Signs Temp Pulse Pulse Resp BP BP Pulse Ox 05/20/20 18:20 68 22 100 05/20/20 18:10 66 14 100 05/20/20 18:08 65 23 80/55 L 98 05/20/20 18:00 66 19 100 05/20/20 17:53 71 18 109/72 100 05/20/20 17:50 77 23 100 05/20/20 17:49 36.6 C 76 18 124/86 100 05/20/20 17:40 77 17 100 05/20/20 17:38 72 20 124/86 05/20/20 17:37 85 18 05/20/20 15:10 36.3 C L 78 18 183/114 H 100 Coding Level of Care Code Critical Care 1st 30-74 mins Diagnoses Admitted to intensive care unit Z78.[address] elevation myocardial infarction (STEMI) I21.3 Involved coronary artery: unspecified coronary artery Myocardial infarction, posterior wall I21.29 Acute IL, inferior wall I21.19 Hypercholesteremia E78.00 Hypertension I10 Hypotension I95.9 S/P PTCA (percutaneous transluminal coronary angioplasty) Z98.61 S/P drug eluting coronary stent placement Z95.5 Time Spent (min) 55 (1) Acute ST elevation myocardial infarction (STEMI) Involved coronary artery: unspecified coronary artery Qualified Code(s): I21.3 - ST elevation (STEMI) myocardial infarction of unspecified site
[2020-05-20] MEDS: METOPROLOL TARTRATE 25 MG TAB PO SCH (20:45)
[2020-05-20] MEDS: ONDANSETRON INJ 2 MG/ML 2 ML VIAL IV PRN (21:09)
[2020-05-20] MEDS ORDERED: SODIUM CHLORIDE 0.9% 1000ML 1,000 ML IV ONE (22:28)
[2020-05-21] MEDS: ONDANSETRON INJ 2 MG/ML 2 ML VIAL IV PRN (01:25)
[2020-05-21] MEDS ORDERED: SODIUM CHLORIDE 0.9% 1000ML 1,000 ML IV SCH (03:15)
[2020-05-21] MEDS: TICAGRELOR 90 MG TAB PO SCH ×2 (05:19→20:06)
[2020-05-21 06:01] LABS: Basophils # (auto) 0.02 K/uL (0-0.2); Basophils % (auto) 0.2 %; Hematocrit (blood only) 37.9 % (42-52); Immature Granulocytes # (auto) 0.01 K/uL (0.00-0.02); Immature Granulocytes % (auto) 0.1 %; Lymphocytes % (auto) 7.8 %; Mean Corpuscular Hemoglobin 30.2 pg (25-34); Mean Corpuscular Hgb Conc 34.3 g/dL (32-36); Mean Corpuscular Volume 88.1 fL (80-100); Mean Platelet Volume 9.7 fL (7.4-10.4); Monocytes # (auto) 1.08 K/uL (0.11-0.59); Monocytes % (auto) 9.3 %; Neutrophils # (auto) 9.58 K/uL (1.4-6.5); Neutrophils % (auto) 82.6 %; Platelet Count 227 K/uL (130-400); RDW Coefficient of Variation 13.7 % (11.5-14.5); RDW Standard Deviation 43.9 fL (36.4-46.3); White Blood Count 11.59 K/uL (4.8-10.8)
[2020-05-21 06:42] LABS: BUN Creatinine Ratio 10.8 (10-20); Blood Urea Nitrogen 16 mg/dl (7-18); Calcium 8.2 mg/dl (8.5-10.1); Carbon Dioxide 23 mmol/L (21-32); Chloride 112 mmol/L (98-107); Chol HDL Ratio 3; Cholesterol 159 mg/dl (0-200); Creatinine Clr Calc Pharmacy 47.6 ml/min; Est GFR (African American) 53.5; Est GFR (Non-African American) 46.1; Glucose 115 mg/dl (70-99); HDL Cholesterol 54 mg/dl; LDL Cholesterol Direct 89 mg/dl; Phosphorus 2.5 mg/dl (2.5-4.9); Potassium 4.3 mmol/L (3.5-5.1); Sodium 141 mmol/L (136-145); Triglycerides 83 mg/dl (0-150); VLDL Cholesterol 17 mg/dl
[2020-05-21 07:28] LABS: Estimated Average Glucose 108 mg/dl; Hemoglobin A1C 5.4 % (4.5-5.6)
[2020-05-21] MEDS: ASPIRIN 81 MG ECTAB PO SCH (07:46)
[2020-05-21] MEDS: ATORVASTATIN 40 MG TAB PO SCH (07:46)
--- NOTE | 2020-05-21 08:44 | Critical Care Progress Note ---
Date of Service May 21, 2020 Assessment & Plan (1) Admitted to intensive care unit: Reason Critically Ill: 69-year-old male with acute inferior ST segment elevation myocardial infarction who is status post PTCA with DINESH x2 requiring close hemodynamic monitoring status post coronary intervention. Neuro - [facility] ICU: negative - neurologically intact this morning, continue to monitor Cardiac - Acute Inferior STEMI (100% RCA occlusion) s/p PCI w/ DINESH x1 to ostial RCA and x1 to RCA - Troponin peaked at 150 @2336 last night, down to 92.8 this morning - TTE this morning: EF 40-45%, akinesis of several aspects of inferior ricketts/septum, hypokinesis of mid septum and mid inferolateral ricketts - currently hemodynamically stable: maintaining MAP >65 (BPs >100/60) and HR >60 - continue Dopamine gtt, wean as tolerated - continue NSS @100cc/hr, gave another 500cc NSS bolus this morning for extra preload support - held Losartan/Metoprolol this morning due to mild hypotension - continue Atorvastatin/Aspirin/Brilinta - serial heart catheterization planned for later this morning Respiratory - no history of pulmonary disease, satting well on room air GI - heart-healthy diet RENAL/LYTES - chronic kidney disease stage 3A (Cr 1.51, eGFR 46.1) - recommend follow-up with PCP for further eval/management as outpatient - No significant electrolyte derangement - Replace lytes as needed. - No concerns at this time ENDO - no history of diabetes or thyroid disease - BSGs/SSI per unit protocol HEME - H/H mildly decreased to 13.0/37.9 but appears to be 2/2 hemodilution - repeat H/H ordered at noon ID - No concerns for infection at this point - Monitor fever curve LINES/IV ACCESS - PIV x2 intact DVT PROPHYLAXIS - no pharmacologic ppx at this time (s/p cath) - SCDs CODE STATUS: full code Thank you for allowing us to be part of this patient's care. Please refer to Dr. Friend's documentation for any further recommendations. (2) Acute ST elevation myocardial infarction (STEMI): (3) Myocardial infarction, posterior wall: (4) Acute DC, inferior wall: (5) Hypotension: (6) Hyperglycemia: (7) Hypercholesteremia: (8) Hypertension: Admission and Anticipated Discharge Date Admission Date: May 20, 2020 Supervising Physician Co-Signing Physician Notes Dr Szymanski was the resident-physician during care of patient. I separately evaluated patient for jung portions of the history and the exam. I was present during the critical portion of medical decision making, and I discussed the case with the resident. I generally agree with the findings and plan except for any additions/exceptions noted. Patient seen and examined at bedside. No acute distress. Patient was on dopamine 5 MCG at the time of examination. Blood pressure was low yesterday he was given bolus and IV fluids and that he responded to that. At the time of examination he denied any chest pain, no dizziness, no nausea, no vomiting, no headache, no blurry vision. No diaphoresis. Patient had 2 stents in RCA placed in yesterday. He is scheduled to have another cath for further stenting. On physical exam patient had mild crackles bilateral lower lobes. No wheeze or rhonchi Regular rate and rhythm. No lower extremity edema Goal would be to try to taper off the dopamine which the patient is on. Patient EF on the latest echo 40-45% Patient's hemoglobin did go down after coming to the hospital. This is most likely dilutional. Repeat H&H later today. In/out: +[phone] I have personally spent 35 minutes of critical care time in the direct manage ment of this patient. This is a life/limb threatening event. This includes time spent evaluating pa tient, direct bedside care, chart review, placing orders, interpretation of diagnostic studies, discussion with consultants, patient, and family members, as well as other required patient management activities. This time is exclusive of all separately billable procedures, and teaching time and separate from and in addition to any other critical care service time. Please note the above document was generated using voice recognition software. It may contain grammatical, syntax or spelling errors. Subjective Patient became acutely bradycardic to 40s and hypotensive to 60s/40s yesterday at ~1900 (~2 hours after right heart catheterization with PCI - DESx2). Received 1L NSS bolus and Atropine x1, then was started on Dopamine gtt @5mcg/kg/min - subsequently hemodynamically stable with BPS >100/60 and HR >60. Otherwise did well overnight. This morning the patient denies headache, fever/chills, chest pain, palpitations, syncope, near-syncope, shortness of breath, N/V, abdominal pain. Review of Systems Review of Systems: Pertinent positives and negatives mentioned in HPI. Physical Exam Physical Exam: General: A&Ox3. NAD. Cooperative. HEENT: Atraumatic, normocephalic. Pulm: CTAB A&P. -wheezes, -rales, -rhonchi. Symmetrical chest rise. No increase work of breathing. No respiratory distress. Cardiac: RRR, -mrg. Radial pulses intact and symmetrical. Right radial arterial access site with overlying dressing c/d/i, no bruit Abdominal: soft, non-tender, non-distended, BS x 4 Skin: warm, dry Neuro: CNII-XII intact, 5/5 strength bilaterally, 2+ brachial/patellar reflexes, no cerebellar signs Results & Data Results & Data ([facility]) Vital Signs (Past 12 Hours) Vital Signs Temp Pulse Resp BP Pulse Ox 05/21/20 06:11 80 15 117/77 96 05/21/20 05:42 70 28 H 95/51 L 97 05/21/20 05:26 79 14 106/73 96 05/21/20 04:26 36.8 C 79 25 H 127/77 93 05/21/20 03:56 76 24 82/38 L 94 05/21/20 03:26 72 12 92/49 L 95 05/21/20 03:04 68 16 81/52 L 96 05/21/20 03:02 69 16 73/47 L 98 05/21/20 03:00 74 20 68/46 L 94 05/21/20 02:26 66 17 112/64 96 05/21/20 01:56 69 13 109/64 95 05/21/20 01:26 73 22 100/59 L 97 05/21/20 00:26 37.0 C 69 10 L 99/57 L 95 05/20/20 23:45 79 14 96 05/20/20 23:11 74 10 L 125/64 100 05/20/20 22:52 79 17 112/69 98 05/20/20 22:27 74 13 99/53 L 99 05/20/20 22:24 72 22 84/51 L 98 05/20/20 22:22 72 14 74/51 L 97 05/20/20 21:57 76 10 L 103/64 95 05/20/20 21:52 73 11 L 98/58 L 97 05/20/20 21:48 75 26 H 92/58 L 96 05/20/20 21:47 73 15 78/60 L 99 05/20/20 21:42 76 13 105/59 L 98 05/20/20 21:37 75 10 L 93/58 L 99 05/20/20 21:32 74 14 95/57 L 98 05/20/20 21:27 74 10 L 94/53 L 97 05/20/20 21:22 75 24 99/59 L 98 05/20/20 21:12 73 16 98/54 L 98 05/20/20 21:08 75 26 H 106/65 99 05/20/20 21:00 74 18 05/20/20 20:57 78 14 114/70 99 05/20/20 20:52 67 25 H 107/59 L 93 05/20/20 20:47 76 15 105/63 99 05/20/20 20:45 77 12 99 05/21/20 13:58 05/21/20 05:47 Resident Activity Tracking Resident Involvement: Resident Care Provided Care Provided: Adult Hospital Medicine (1) Acute ST elevation myocardial infarction (STEMI) Involved coronary artery: unspecified coronary artery Qualified Code(s): I21.3 - ST elevation (STEMI) myocardial infarction of unspecified site
--- NOTE | 2020-05-21 10:08 | XCELERA ---
[id number]\[id number]
[2020-05-21] MEDS ORDERED: niCARdipine HCL INJ 2.5 MG/ML 10 ML AMP ONE (10:15)
[2020-05-21] MEDS ORDERED: HEPARIN (PORCINE) 1000 UNIT/ML 10 ML (CATH LAB USE ONLY) ONE ×2 (10:15→11:14)
[2020-05-21] MEDS ORDERED: fentaNYL citrate 100 MCG/2 ML VIAL ONE (10:15)
[2020-05-21] MEDS ORDERED: MIDAZOLAM HCL 1 MG/ML 2ML VIAL ONE (10:15)
[2020-05-21] MEDS ORDERED: NITROGLYCERIN/D5W 100MCG/ML 20ML SYR ONE (10:16)
[2020-05-21] MEDS: METOPROLOL TARTRATE 25 MG TAB PO SCH ×2 (10:35→20:06)
[2020-05-21] MEDS: LOSARTAN POTASSIUM 25 MG TAB PO SCH (10:35)
[2020-05-21] MEDS: DOPamine / D5W 400 MG/250 ML BAG IV SCH (10:39)
--- NOTE | 2020-05-21 10:50 | Pre Anesthesia Assessment ---
Date of Service May 21, 2020 Pre Sedation Assessment Vital Signs Temp Pulse Pulse Resp BP BP Pulse Ox 05/21/20 10:00 75 16 05/21/20 09:43 79 14 100/65 05/21/20 09:30 74 18 89 L 05/21/20 09:13 73 13 93/59 L 97 05/21/20 09:00 75 25 H 95 05/21/20 08:43 74 15 111/69 99 05/21/20 08:30 80 15 94 05/21/20 08:13 78 19 86/57 L 97 05/21/20 08:00 98.1 F 80 13 92 05/21/20 07:41 71 19 84/53 L 94 05/21/20 07:30 71 19 93 05/21/20 07:26 77 13 103/59 L 100 05/21/20 07:11 73 24 84/56 L 86 L 05/21/20 07:00 72 15 97 05/21/20 06:11 80 15 117/77 96 05/21/20 05:42 70 28 H 95/51 L 97 05/21/20 05:26 79 14 106/73 96 05/21/20 04:26 98.2 F 79 25 H 127/77 93 05/21/20 03:56 76 24 82/38 L 94 05/21/20 03:26 72 12 92/49 L 95 05/21/20 03:04 68 16 81/52 L 96 05/21/20 03:02 69 16 73/47 L 98 05/21/20 03:00 74 20 68/46 L 94 05/21/20 02:26 66 17 112/64 96 05/21/20 01:56 69 13 109/64 95 05/21/20 01:26 73 22 100/59 L 97 05/21/20 00:26 98.6 F 69 10 L 99/57 L 95 05/20/20 23:45 79 14 96 05/20/20 23:11 74 10 L 125/64 100 05/20/20 22:52 79 17 112/69 98 05/20/20 22:27 74 13 99/53 L 99 05/20/20 22:24 72 22 84/51 L 98 05/20/20 22:22 72 14 74/51 L 97 05/20/20 21:57 76 10 L 103/64 95 05/20/20 21:52 73 11 L 98/58 L 97 05/20/20 21:48 75 26 H 92/58 L 96 05/20/20 21:47 73 15 78/60 L 99 05/20/20 21:42 76 13 105/59 L 98 05/20/20 21:37 75 10 L 93/58 L 99 05/20/20 21:32 74 14 95/57 L 98 05/20/20 21:27 74 10 L 94/53 L 97 05/20/20 21:22 75 24 99/59 L 98 05/20/20 21:12 73 16 98/54 L 98 05/20/20 21:08 75 26 H 106/65 99 05/20/20 21:00 74 18 05/20/20 20:57 78 14 114/70 99 05/20/20 20:52 67 25 H 107/59 L 93 05/20/20 20:47 76 15 105/63 99 05/20/20 20:45 77 12 99 05/20/20 20:42 71 15 105/59 L 98 05/20/20 20:37 75 16 110/63 96 05/20/20 20:32 73 17 99/63 L 93 05/20/20 20:30 75 15 97 05/20/20 20:27 78 13 104/63 97 05/20/20 20:21 85 17 109/64 97 05/20/20 20:17 85 19 113/67 98 05/20/20 20:15 90 16 96 05/20/20 20:12 89 23 108/60 97 05/20/20 20:06 85 13 109/67 97 05/20/20 20:01 89 18 104/66 96 05/20/20 20:00 100 H 19 95 05/20/20 19:56 90 26 H 105/66 97 05/20/20 19:53 81 17 95/64 L 97 05/20/20 19:51 82 15 79/50 L 100 05/20/20 19:47 87 28 H 89/53 L 95 05/20/20 19:45 84 25 H 96 05/20/20 19:43 87 21 92/44 L 95 05/20/20 19:37 86 19 98/56 L 81 L 05/20/20 19:31 79 16 102/75 95 05/20/20 19:30 89 18 98 05/20/20 19:27 97 H 22 80/54 L 83 L 05/20/20 19:23 80 18 70/48 L 05/20/20 19:21 81 26 H 64/47 L 49 L 05/20/20 19:17 84 17 73/63 L 45 L 05/20/20 19:15 85 15 79/47 L 50 L 05/20/20 19:12 86 18 79/52 L 96 05/20/20 19:08 56 L 15 60/41 L 100 05/20/20 19:05 61 16 57/39 L 100 05/20/20 18:20 68 22 100 05/20/20 18:10 66 14 100 05/20/20 18:08 65 23 80/55 L 98 05/20/20 18:00 66 19 100 05/20/20 17:53 71 18 109/72 100 05/20/20 17:50 77 23 100 05/20/20 17:49 97.9 F 76 18 124/86 100 05/20/20 17:40 77 17 100 05/20/20 17:38 72 20 124/86 05/20/20 17:37 85 18 05/20/20 15:10 97.3 F L 78 18 183/114 H 100 Cardiovascular RRR, no murmur, no edema Respiratory normal respiratory effort, lungs clear to auscultation Pre-Sedation Airway Assessment Smoking Status: Never smoker Hx Sleep Apnea: No Hx Difficult Intubation: No Short, Thick Neck: No Thyromental Distance: > or= 3.5 Finger Breadths Oral Cavity: + WNL Mallampati Class: III ASA: ASA3 NPO Status Date of Last Intake of Fluids: 05/20/20 Date of Last Intake of Solid Food: 05/20/20 Procedure Planning Contraindications for Sedation: none Current Medications Reviewed: Yes Notes The planned sedation has been discussed with the patient. Informed Consent was obtained. I have identified the patient, determined the appropriateness of sedation and have assessed the patient immediately prior to the procedure. All medicine(s) and interventions are by my order.
--- NOTE | 2020-05-21 12:43 | Post Anesthesia Assessment ---
Date of Service May 21, 2020 Post Sedation Assessment Vital Signs Temp Pulse Pulse Pulse Resp BP BP 05/21/20 12:30 68 16 134/76 05/21/20 10:00 75 16 05/21/20 09:43 79 14 100/65 05/21/20 09:30 74 18 05/21/20 09:13 73 13 93/59 L 05/21/20 09:00 75 25 H 05/21/20 08:43 74 15 111/69 05/21/20 08:30 80 15 05/21/20 08:13 78 19 86/57 L 05/21/20 08:00 98.1 F 80 13 05/21/20 07:41 71 19 84/53 L 05/21/20 07:30 71 19 05/21/20 07:26 77 13 103/59 L 05/21/20 07:11 73 24 84/56 L 05/21/20 07:00 72 15 05/21/20 06:11 80 15 117/77 05/21/20 05:42 70 28 H 95/51 L 05/21/20 05:26 79 14 106/73 05/21/20 04:26 98.2 F 79 25 H 127/77 05/21/20 03:56 76 24 82/38 L 05/21/20 03:26 72 12 92/49 L 05/21/20 03:04 68 16 81/52 L 05/21/20 03:02 69 16 73/47 L 05/21/20 03:00 74 20 68/46 L 05/21/20 02:26 66 17 112/64 05/21/20 01:56 69 13 109/64 05/21/20 01:26 73 22 100/59 L 05/21/20 00:26 98.6 F 69 10 L 99/57 L 05/20/20 23:45 79 14 05/20/20 23:11 74 10 L 125/64 05/20/20 22:52 79 17 112/69 05/20/20 22:27 74 13 99/53 L 05/20/20 22:24 72 22 84/51 L 05/20/20 22:22 72 14 74/51 L 05/20/20 21:57 76 10 L 103/64 05/20/20 21:52 73 11 L 98/58 L 05/20/20 21:48 75 26 H 92/58 L 05/20/20 21:47 73 15 78/60 L 05/20/20 21:42 76 13 105/59 L 05/20/20 21:37 75 10 L 93/58 L 05/20/20 21:32 74 14 95/57 L 05/20/20 21:27 74 10 L 94/53 L 05/20/20 21:22 75 24 99/59 L 05/20/20 21:12 73 16 98/54 L 05/20/20 21:08 75 26 H 106/65 05/20/20 21:00 74 18 05/20/20 20:57 78 14 114/70 05/20/20 20:52 67 25 H 107/59 L 05/20/20 20:47 76 15 105/63 05/20/20 20:45 77 12 05/20/20 20:42 71 15 105/59 L 05/20/20 20:37 75 16 110/63 05/20/20 20:32 73 17 99/63 L 05/20/20 20:30 75 15 05/20/20 20:27 78 13 104/63 05/20/20 20:21 85 17 109/64 05/20/20 20:17 85 19 113/67 05/20/20 20:15 90 16 05/20/20 20:12 89 23 108/60 05/20/20 20:06 85 13 109/67 05/20/20 20:01 89 18 104/66 05/20/20 20:00 100 H 19 05/20/20 19:56 90 26 H 105/66 05/20/20 19:53 81 17 95/64 L 05/20/20 19:51 82 15 79/50 L 05/20/20 19:47 87 28 H 89/53 L 05/20/20 19:45 84 25 H 05/20/20 19:43 87 21 92/44 L 05/20/20 19:37 86 19 98/56 L 05/20/20 19:31 79 16 102/75 05/20/20 19:30 89 18 05/20/20 19:27 97 H 22 80/54 L 05/20/20 19:23 80 18 70/48 L 05/20/20 19:21 81 26 H 64/47 L 05/20/20 19:17 84 17 73/63 L 05/20/20 19:15 85 15 79/47 L 05/20/20 19:12 86 18 79/52 L 05/20/20 19:08 56 L 15 60/41 L 05/20/20 19:05 61 16 57/39 L 05/20/20 18:20 68 22 05/20/20 18:10 66 14 05/20/20 18:08 65 23 80/55 L 05/20/20 18:00 66 19 05/20/20 17:53 71 18 109/72 05/20/20 17:50 77 23 05/20/20 17:49 97.9 F 76 18 124/86 05/20/20 17:40 77 17 05/20/20 17:38 72 20 124/86 05/20/20 17:37 85 18 05/20/20 15:10 97.3 F L 78 18 183/114 H Pulse Ox 05/21/20 12:30 97 05/21/20 10:00 05/21/20 09:43 05/21/20 09:30 89 L 05/21/20 09:13 97 05/21/20 09:00 95 05/21/20 08:43 99 05/21/20 08:30 94 05/21/20 08:13 97 05/21/20 08:00 92 05/21/20 07:41 94 05/21/20 07:30 93 05/21/20 07:26 100 05/21/20 07:11 86 L 05/21/20 07:00 97 05/21/20 06:11 96 05/21/20 05:42 97 05/21/20 05:26 96 05/21/20 04:26 93 05/21/20 03:56 94 05/21/20 03:26 95 05/21/20 03:04 96 05/21/20 03:02 98 05/21/20 03:00 94 05/21/20 02:26 96 05/21/20 01:56 95 05/21/20 01:26 97 05/21/20 00:26 95 05/20/20 23:45 96 05/20/20 23:11 100 05/20/20 22:52 98 05/20/20 22:27 99 05/20/20 22:24 98 05/20/20 22:22 97 05/20/20 21:57 95 05/20/20 21:52 97 05/20/20 21:48 96 05/20/20 21:47 99 05/20/20 21:42 98 05/20/20 21:37 99 05/20/20 21:32 98 05/20/20 21:27 97 05/20/20 21:22 98 05/20/20 21:12 98 05/20/20 21:08 99 05/20/20 21:00 05/20/20 20:57 99 05/20/20 20:52 93 05/20/20 20:47 99 05/20/20 20:45 99 05/20/20 20:42 98 05/20/20 20:37 96 05/20/20 20:32 93 05/20/20 20:30 97 05/20/20 20:27 97 05/20/20 20:21 97 05/20/20 20:17 98 05/20/20 20:15 96 05/20/20 20:12 97 05/20/20 20:06 97 05/20/20 20:01 96 05/20/20 20:00 95 05/20/20 19:56 97 05/20/20 19:53 97 05/20/20 19:51 100 05/20/20 19:47 95 05/20/20 19:45 96 05/20/20 19:43 95 05/20/20 19:37 81 L 05/20/20 19:31 95 05/20/20 19:30 98 05/20/20 19:27 83 L 05/20/20 19:23 05/20/20 19:21 49 L 05/20/20 19:17 45 L 05/20/20 19:15 50 L 05/20/20 19:12 96 05/20/20 19:08 100 05/20/20 19:05 100 05/20/20 18:20 100 05/20/20 18:10 100 05/20/20 18:08 98 05/20/20 18:00 100 05/20/20 17:53 100 05/20/20 17:50 100 05/20/20 17:49 100 05/20/20 17:40 100 05/20/20 17:38 05/20/20 17:37 05/20/20 15:10 100 Recovery Score Activity: Moves 4 extremities Respiration: Deep Breath/Cough Circulation: +/-20% PreAnes Value Consciousness: Fully Awake Oxygen Saturation: O2 needed for >90% Discharge Sedation Level of Care: Fast Track Phase II Post Sedation Plan On clinical assessment, the patient appears to have tolerated the sedation without complications. Patient is recovering as anticipated. Patient will continue to be monitored by nursing and may be discharged when sedation discharge criteria are met per below protocol. Upon Completions of procedure up to 15 minutes continue every 5 minute vital signs and the P.A.R. score; then discharge to a Phase I or Fast Track to Phase II per the following guidelines: * Discharge Patient to appropriate Phase II area if PAR is 8 or greater or return to pre- procedure baseline. The post - procedure orders will be as directed. * If PAR score is less than 8 or not return to pre-procedure baseline then patient will follow Phase I monitoring till PAR is reached for Phase II. The Phase I may be done in procedure room or may call to secure a Phase I area. * If naloxone or flumazenil are used for reversal, hold in Phase I for continued monitoring from when last reversal dose was given for a minimum of 60 minutes or longer pending the nurse and/or physician discretion of patient condition before discharge to Phase II. Please call the Sedation Physician to re-evaluate and complete post-note for discharge to Phase II area. Do NOT discharge from procedure sedation or Phase 1 until post- sedation evaluation note is complete by procedure /sedation MD Sedation Discharge Instructions to be given to the patient at discharge to home.
--- NOTE | 2020-05-21 12:53 | Cardiac Catheterization ---
[facility] Data: Crime Scene Analyst Cardiac Status Clinical evaluation leading to the procedure CAD Presenation: STEMI Anginal Classification: CCS IV Heart Failure: No Cardiogenic Shock within 24 Hours: No Cardiac Arrest within 24 Hours: No Imaging Studies Past 6 Months: Yes Stress Studies Past 6 Months: No Diagnostic Physicians Name: Lavelle Luo MD Status: Elective Closure Device Percutaneous Entry Location: Radial Closure Device: Radial Band Recommendations: PCI without planned CABG PCI Indication: Staged PCI Lesion Segment Name: Proximal LAD Culprit Artery: No Stenosis Prior to Rx (%): 95 Chronic Total Occlusion: No IVUS: Yes FFR: No Pre-Procedure NATHANIEL Flow: 3 Previously Treated Lesion: No Lesion Complexity: High/C Lesion Length (mm): 30 Thrombus Present: No Bifurcation Lesion: Yes Guidewire Across Lesion: Stenosis Post-Procedure (%): 0 Post-Procedure NATHANIEL Flow: 3 Devices(s) Deployed: Yes Yes Intraprocedure Events Significant Disection: No Perforation: No Cardiac Cath Procedure Full Procedure Date May 21, 2020 Pre-Procedure Diagnosis Pre-Procedure Diagnosis: STEMI AUC Score AUC Score: 9 Post-Procedure Diagnosis Post-Procedure Diagnosis: Severe CAD, Successful PCI and Normal Intracardiac Pressures Procedure(s) Performed Procedure(s) Performed: Coronary Angiography, Left Heart Cath, Drug Eluting Stent and IVUS Personal Insurance Advisor Lavelle Luo MD Animal Husbandman(s) Blank Estimated Blood Loss Estimated Blood Loss: 20 Medication(s) Medication(s): Aspirin, Fentanyl, Heparin, Lidocaine 1%, Nicardipine, Nitroglycerin and Versed Summary of Findings Indication: Post primary PCI for inferior STEMI with 2 DINESH to RCA 05/20/2020. Here today for staged PCI of severe nonculprit LAD disease. Access: 6 Fr right radial artery Catheters: EBU 3.75 guide Findings: For full details of patient's coronary angiography please see cath report dictated yesterday. Briefly patient found to have severe proximal to mid LAD disease as well as severe disease and proximal first diagonal. -- PCI -- Antithrombotic therapy: Heparin, ticagrelor Procedure: Left main cannulated with EBU 3.75 guide BMW wire placed into dominant branch of D1 P[place] wire placed into distal LAD Scudding Inspector 50 wire placed into smaller, superior branch of D1 Proximal aspect of superior branch of D1 dilated with 2.0 balloon Proximal D1 dilated with 2.0 balloon Proximal to mid LAD dilated with 2.0 balloon [place] IVUS catheter placed into distal LAD. Pullback revealed moderate to severe latemid LAD disease and severe diffuse disease across proximal segment extending back to ostium. Mildly calcified. Proximal diagonal into dominant inferior branch stented with 2.25 x 22 mm [place] drug-eluting stent Stent postdilated with stent balloon. Proximal LAD from ostium to mid segment stented with 3.0 x 34 mm [place] D1 rewired through stent struts with air force pilot 50 wire Repeat IVUS pullback revealed well apposed stent, underexpanded in the midsegment with no apparent edge complications. Proximal LAD stent postdilated with 3.5 NC balloon Residual severe disease in latemid LAD stented with 2.25 x 15 mm [place]. Stent postdilated with stent balloon. IC vasodilators administered for spasm Post procedure NATHANIEL 3 flow, stents well expanded with minimal residual stenosis. Residual dissection in superior, small branch of D1 but NATHANIEL-3 flow. Arterial Closure: TR band Summary: 1. Successful PCI of ostial to mid LAD with 3.0 x 34 mm [place] drug-eluting stent (postdilated with 3.5 NC). 2. Successful PCI of proximal first diagonal with 2.25 x 22 mm [place] drug- eluting stent. -Angioplasty of superior branch of first diagonal with 2.0 balloon. 3. Successful PCI of latemid LAD with 2.25 x 15 mm [place] drug-eluting stent. Recommendations: To ICU for continued monitoring Wean off dopamine Continue dual-antiplatelet therapy for at least 1 year Hemodynamics Rest Ao:: 100/54/86 Final Ao: 117/71/93 LV: 102/16 Recommendations Recommendations: PCI without planned CABG Specimens Specimens: None Radiation Exposure (mGy) 1837 Contrast (mls) 165 Fluids (cc crystalloids) Fluids (cc crystalloids): 215 Drains Drains: none Anesthesia moderate [id number] Procedural Complication(s) None Disposition ICU I attest to the content of the Intraoperative Record and any orders documented therein. Any exceptions are noted below. [employer] Card Cath Procedure Codes Cardiac Catheterization Procedure 1: Cardiovascular Cath Procedures: 84315 Left Heart Cath (+/-LV) Therapeutic Services & Ancillary Proc Procedure 1: Cardiovascular Tx and Anc Procedures: 98621 IV Ultrasound (Coronary or Graft) Moderate Sedation Procedure 1: Sedation/Anesthesia: 81690 Mod Sedation by the same physician;Init15 Min Child Age 5 & Up Procedure 2: Sedation/Anesthesia: 60166 Mod Sedation by the same physician; Kg [place] Minutes Stenting Procedure 1: Cardiovascular Stent Procedures: 74855 Perc transcatheter placement of intracoronary stent(s), with ang PG Care Time/CCT Total # of Minutes Spent Total Time Spent with Patient: Total time spent is greater than 50% in coordination of care (as documented) at patient's floor/unit and/or counseling patient:
--- NOTE | 2020-05-21 13:00 | Cardiology Progress Note ---
Date of Service May 21, 2020 Assessment & Plan (1) Acute [place]: Post primary PCI with 2 DINESH to RCA 2. Severe nonculprit coronary artery disease Post PCI with 2 DINESH to LAD, 1 to diagonal 3. Ischemic cardiomyopathyEF 40 to 45% 4. Chronic renal insufficiencycreatinine stable 5. Hypotension 6. Dyslipidemia Patient post staged PCI to LAD/diagonal today. Procedure uncomplicated. No recurrent chest pain. Mild LV dysfunction on echo. No signs of heart failure. Normal LVEDP Continue DAPT with aspirin, ticagrelor Continue IV fluids in the setting of CRI and repeated contrast Wean off dopamine Start low-dose metoprolol as BP allows Resume home losartan tomorrow Continue high intensity statin Patient can be transferred to telemetry as needed If stable overnight tentatively could be discharged tomorrow. Admission and Anticipated Discharge Date Admission Date: May 20, 2020 Subjective Feeling well this morning. No recurrent chest pain. Hypotensive yesterday afternoon requiring restarting dopamine. Borderline pressures on minimal dopamine this morning. Troponin peaked. Echo reviewedLVEF 40 to 45% with inferior wall motion abnormality Review of Systems Review of Systems: All systems reviewed & are unremarkable except as noted in HPI & below Physical Exam Physical Exam: General: Comfortable HEENT: Sclerae anicteric Lungs: Clear to auscultation bilaterally, Cardiac: Regular rate and rhythm, no murmurs Vascular: Right radial artery access site with no ecchymosis, hematoma. Distal pulse and sensation intact. Abdomen: Soft, nontender Extremities: Well perfused, no peripheral edema Neuro: Nonfocal Psych: Alert orient x3, normal affect and mood Results & Data ([facility] [place]) Vital Signs (Past 12 Hours) Vital Signs Temp Pulse Pulse Resp BP BP Pulse Ox 05/21/20 12:30 68 16 134/76 97 05/21/20 10:00 75 16 05/21/20 09:43 79 14 100/65 05/21/20 09:30 74 18 89 L 05/21/20 09:13 73 13 93/59 L 97 05/21/20 09:00 75 25 H 95 05/21/20 08:43 74 15 111/69 99 05/21/20 08:30 80 15 94 05/21/20 08:13 78 19 86/57 L 97 05/21/20 08:00 98.1 F 80 13 92 05/21/20 07:41 71 19 84/53 L 94 05/21/20 07:30 71 19 93 05/21/20 07:26 77 13 103/59 L 100 05/21/20 07:11 73 24 84/56 L 86 L 05/21/20 07:00 72 15 97 05/21/20 06:11 80 15 117/77 96 05/21/20 05:42 70 28 H 95/51 L 97 05/21/20 05:26 79 14 106/73 96 05/21/20 04:26 98.2 F 79 25 H 127/77 93 05/21/20 03:56 76 24 82/38 L 94 05/21/20 03:26 72 12 92/49 L 95 05/21/20 03:04 68 16 81/52 L 96 05/21/20 03:02 69 16 73/47 L 98 05/21/20 03:00 74 20 68/46 L 94 05/21/20 02:26 66 17 112/64 96 05/21/20 01:56 69 13 109/64 95 05/21/20 01:26 73 22 100/59 L 97 PG Care Time/CCT Total # of Minutes Spent Total Time Spent with Patient: Total time spent is greater than 50% in coordin ation of care (as documented) at patient's floor/unit and/or counseling patient: Coding Level of Care Code 62920 Subseq Hosp Care Lvl 3 Diagnoses Acute NH I21.9
[2020-05-21 14:24] LABS: Hematocrit (blood only) 37.6 % (42-52); Hemoglobin 12.7 g/dL (14.0-18.0)
--- NOTE | 2020-05-21 14:33 | Billing Data ---
Date of Service May 21, 2020 Coding Level of Care Code Critical Care 1st 30-74 mins Time Spent (min) 35
--- NOTE | 2020-05-21 16:04 | Electrocardiogram Report ---
Test Reason : Blood Pressure : / mmHG Vent. Rate : 073 BPM Atrial Rate : 073 BPM P-R Int : 154 ms QRS Dur : 096 ms QT Int : 384 ms P-R-T Axes : 043 -05 079 degrees QTc Int : 423 ms Sinus rhythm with marked sinus arrhythmia Inferior-posterior infarct , possibly acute ACUTE [place] / STEMI Consider right ventricular involvement in acute inferior infarct Abnormal ECG Confirmed by Lavelle Babcock ([id number]) on 05/21/2020 4:04:34 PM Referred By: REFERRED SELF Confirmed By:Charles Babcock
--- NOTE | 2020-05-21 16:13 | Electrocardiogram Report ---
Test Reason : Blood Pressure : / mmHG Vent. Rate : 079 BPM Atrial Rate : 079 BPM P-R Int : 144 ms QRS Dur : 090 ms QT Int : 388 ms P-R-T Axes : 000 -25 -03 degrees QTc Int : 444 ms Normal sinus rhythm Inferior infarct (cited on or before 20-MAY-2020) ACUTE [place] / STEMI Consider right ventricular involvement in acute inferior infarct Abnormal ECG When compared with ECG of 20-MAY-2020 15:19, (unconfirmed) Serial changes of evolving Inferior infarct Present Confirmed by Lavelle Babcock ([id number]) on 05/21/2020 4:13:27 PM Referred By: REFERRED SELF Confirmed By:Charles Babcock
--- NOTE | 2020-05-21 17:27 | Hospitalist Progress Note ---
Date of Service May 21, 2020 Assessment & Plan (1) Acute ST elevation myocardial infarction (STEMI): Appreciate cardiology management ASA, Brillianta, Atorvastatin Metoprolol and losartan with hold parameters 05-20 2 DINESH to RCA 3 2 DINESH to LAD 1 DINESH to diagonal (2) Ischemic cardiomyopathy: EF 45% 05-21 can resume losartan tomorrow, low dose metoprolol per cardio (3) Hypotension: BP 80/55 when seen, patient alert and orientated. Discussed with ICU team to appropriately manage. 3 BP 98/67 off pressors (4) Hypertension: Metoprolol and losartan as above with hold parameters Patient reports usual fluctuating blood pressure usually at home (5) Hypercholesteremia: Lipid panel in AM Atorvastatin 80mg PO HS (6) Acid reflux: None currently. Monitor Admission and Anticipated Discharge Date Admission Date: May 20, 2020 Subjective Underwent repeat LHC today. Nasuea last night has resolved. Denies vomiting. Denies diarrhea. Making urine. Appetite is good. Right wrist is not bleeding -- still wearing compression device. Review of Systems Constitutional: no fever, no chills, no fatigue, no weakness, no anorexia, no weight loss and no weight gain Ear, Nose, Mouth, Throat: no nasal congestion, no sore throat and no dysphagia Respiratory: no cough and no dyspnea Cardiovascular: no chest pain, no dyspnea on exertion, no orthopnea and no palpitations Gastrointestinal: no abdominal pain, no nausea, no vomiting, no hematemesis, no dysphagia, no constipation, no diarrhea/loose stools, no blood in stools and no melena Genitourinary: no dysuria and no hematuria Musculoskeletal: no back pain, no joint pain, no myalgia and no muscle weakness Integumentary: no rash, no lesions, no skin ulcer, no erythema, no dry skin and no pruritus Neurologic: no falls, no localized weakness, no generalized weakness, no numbness, no paresthesia, no tremor(s) and no headache(s) Psychiatric: no depression, no suicidal ideation, no homicidal ideation and no anxiety Endocrine: no cold intolerance and no heat intolerance Hematologic / Lymphatic: no easy bleeding and no easy bruising Physical Exam Constitutional: well developed and well nourished; no acute distress Eyes: PERRL, conjunctivae normal, anicteric sclerae ENMT: Mouth: oral mucous membranes not dry Respiratory: normal respiratory effort; no respiratory distress and no labored breathing Auscultation: lungs clear to auscultation bilaterally; no crackles, no rales, no rhonchi and no wheezes Cardiovascular: Rate/Rhythm: regular rate and regular rhythm Heart Sounds: no murmur and no cardiac rub Vessels: normal peripheral pulses and radial pulses present; no JVD Extremities: no edema Gastrointestinal (Abdomen): Inspection/Auscultation: abdomen normal to inspection and normal bowel sounds; abdomen not distended Percussion/Palpation: abdomen soft; abdomen nontender, no guarding, abdomen not rigid and no hepatosplenomegaly Musculoskeletal: Head/Neck/Chest: normocephalic and head atraumatic Spine: no cervical spinal tenderness, no cervical muscular tenderness, no thoracic spinal tenderness and no lumbar spinal tenderness Skin: no rashes, warm and dry Neurologic: CN's II-XI intact bilaterally and moves all extremities Motor/Sensory: no tremor and no sensory deficit Psychiatric: Orientation: alert, oriented to person, oriented to place and oriented to time Apperance: appropriately groomed; not disheveled Affect: euthymic affect; no anxious affect and no tearful affect Genitourinary: no Yu catheter Results & Data Results & Data ([facility]) Vital Signs (Past 12 Hours) Vital Signs Temp Pulse Pulse Resp BP BP Pulse Ox 05/21/20 16:30 84 21 94 05/21/20 16:26 76 21 98/67 L 97 05/21/20 16:15 82 18 96 05/21/20 16:00 78 20 97 05/21/20 15:44 80 23 92/66 L 98 05/21/20 15:30 76 19 98 05/21/20 15:14 83 23 87/49 L 96 05/21/20 15:00 79 17 96 05/21/20 14:43 84 18 105/72 99 05/21/20 14:30 80 25 H 99 05/21/20 14:15 78 17 93/60 L 100 05/21/20 14:00 80 24 100 05/21/20 13:50 79 18 95 05/21/20 13:44 78 16 115/70 97 05/21/20 13:40 79 23 100 05/21/20 13:30 81 15 100 05/21/20 13:24 80 17 128/63 95 05/21/20 13:20 95 05/21/20 13:10 74 17 100 05/21/20 13:00 74 18 100 05/21/20 12:55 73 12 104/67 99 05/21/20 12:45 70 16 132/78 98 05/21/20 12:30 68 16 134/76 97 05/21/20 10:00 75 16 05/21/20 09:43 79 14 100/65 05/21/20 09:30 74 18 89 L 05/21/20 09:13 73 13 93/59 L 97 05/21/20 09:00 75 25 H 95 05/21/20 08:43 74 15 111/69 99 05/21/20 08:30 80 15 94 05/21/20 08:13 78 19 86/57 L 97 05/21/20 08:00 36.7 C 80 13 92 05/21/20 07:41 71 19 84/53 L 94 05/21/20 07:30 71 19 93 05/21/20 07:26 77 13 103/59 L 100 05/21/20 07:11 73 24 84/56 L 86 L 05/21/20 07:00 72 15 97 05/21/20 06:11 80 15 117/77 96 05/21/20 05:42 70 28 H 95/51 L 97 05/21/20 05:26 79 14 106/73 96 PG Care Time/CCT Total # of Minutes Spent Total Time Spent with Patient: Total time spent is greater than 50% in coor dination of care (as documented) at patient's floor/unit and/or counseling patient: Coding Level of Care Code 78558 Subseq Hosp Care Lvl [address] elevation myocardial infarction (STEMI) I21.3 Involved coronary artery: unspecified coronary artery Ischemic cardiomyopathy I25.5 Hypotension I95.9 Hypertension I10 Hypercholesteremia E78.00 Acid reflux K21.9 (1) Acute ST elevation myocardial infarction (STEMI) Involved coronary artery: unspecified coronary artery Qualified Code(s): I21.3 - ST elevation (STEMI) myocardial infarction of unspecified site
[2020-05-22 05:30] LABS: Basophils # (auto) 0.04 K/uL (0-0.2); Basophils % (auto) 0.4 %; Eosinophils # (auto) 0.13 K/uL (0-0.5); Eosinophils % (auto) 1.2 %; Hematocrit (blood only) 35.8 % (42-52); Immature Granulocytes # (auto) 0.02 K/uL (0.00-0.02); Immature Granulocytes % (auto) 0.2 %; Lymphocytes # (auto) 1.43 K/uL (1.2-3.4); Mean Corpuscular Hemoglobin 30.5 pg (25-34); Mean Corpuscular Hgb Conc 33.5 g/dL (32-36); Mean Corpuscular Volume 90.9 fL (80-100); Monocytes # (auto) 1.24 K/uL (0.11-0.59); Monocytes % (auto) 11.3 %; Neutrophils # (auto) 8.14 K/uL (1.4-6.5); Neutrophils % (auto) 73.9 %; Platelet Count 165 K/uL (130-400); RDW Coefficient of Variation 13.7 % (11.5-14.5); RDW Standard Deviation 45.7 fL (36.4-46.3); Red Blood Count 3.94 M/uL (4.7-6.1)
[2020-05-22 05:59] LABS: BUN Creatinine Ratio 14.5 (10-20); Calcium 7.6 mg/dl (8.5-10.1); Creatinine Clr Calc Pharmacy 49.3 ml/min; Est GFR (African American) 55.7; Magnesium 2.1 mg/dl (1.8-2.4); Phosphorus 2.7 mg/dl (2.5-4.9); Potassium 4.1 mmol/L (3.5-5.1)
[2020-05-22] MEDS: LOSARTAN POTASSIUM 25 MG TAB PO SCH (09:02)
[2020-05-22] MEDS: METOPROLOL TARTRATE 25 MG TAB PO SCH (09:03)
[2020-05-22] MEDS: TICAGRELOR 90 MG TAB PO SCH (09:03)
[2020-05-22] MEDS: ATORVASTATIN 40 MG TAB PO SCH (09:03)
[2020-05-22] MEDS: ASPIRIN 81 MG ECTAB PO SCH (09:04)
--- NOTE | 2020-05-22 09:20 | Cardiology Progress Note ---
Date of Service May 22, 2020 Assessment & Plan (1) Acute [place]: Post primary PCI with 2 DINESH to RCA 2. Severe nonculprit coronary artery disease Post PCI with 2 DINESH to LAD, 1 to diagonal 3. Ischemic cardiomyopathyEF 40 to 45% 4. Chronic renal insufficiencycreatinine stable 5. Hypotension 6. Dyslipidemia Patient stable from a cardiac standpoint No recurrent angina Blood pressures improved. Renal function stable. Ecchymosis at access site but neurovascularly intact Continue DAPT with aspirin, ticagrelor Continue low-dose metoprolol, losartan Continue high intensity statin Up walking in halls today. If feeling well, blood pressure stable okay with discharge later today. Follow-up with me in 2 weeks. Admission and Anticipated Discharge Date Admission Date: May 20, 2020 Subjective Feeling well this morning. No recurrent chest pain. No other new symptoms. Telemetry reviewedno events. Review of Systems Review of Systems: All systems reviewed & are unremarkable except as noted in HPI & below Physical Exam Physical Exam: General: Comfortable HEENT: Sclerae anicteric Lungs: Clear to auscultation bilaterally, Cardiac: Regular rate and rhythm, no murmurs Vascular: Right radial artery access site with ecchymosis extending to mid forearm, pulse intact. Distal sensation intact. Abdomen: Soft, nontender Extremities: Well perfused, no peripheral edema Neuro: Nonfocal Psych: Alert orient x3, normal affect and mood Results & Data ([facility]) Vital Signs (Past 12 Hours) Vital Signs Temp Pulse Pulse Resp BP Pulse Ox 05/22/20 09:10 98.4 F 82 18 142/78 H 99 05/22/20 07:32 76 05/22/20 03:40 98.1 F 76 17 110/56 L 98 05/21/20 22:29 98.4 F 89 18 114/73 96 PG Care Time/CCT Total # of Minutes Spent Total Time Spent with Patient: Total time spent is greater than 50% in coordination of care (as documented) at patient's floor/unit and/or counseling patient: Coding Level of Care Code 33679 Subseq Hosp Care Lvl 3 Diagnoses Acute [place] I21.9
--- NOTE | 2020-05-22 15:34 | Discharge Summary ---
Date of Service May 22, 2020 Admission HPI Per Admitting Provider Robert Saba is a 69 year old male with hyperlipidemia (untreated) and hypertension who presents to the ER with chest pain. He reports ongoing intermittent chest pain worse on exertion for the last 10 days, burning se nsation with belching, usually relieved with rest. He has a significant history of GERD and felt his pain was due to this so was initially ignoring it. Today however his chest pain continued and he searched online that persistent chest pain was an emergent reason to come to the the ER. In the ER a heart alert was called due to inferior ST elevations. He was taken emergently to the cardiac chemical lab supervisor and underwent x2 DINESH to ostial and mid RCA stenosis felt to be the culprit lesion. In addition he has severe non-culprit LAD stenosis up to 95% with plans on going back to the chemical lab supervisor on later this admission. He is currently in the ICU. He denies any current chest pain, shortness of breath, lightheadedness. Principal Diagnosis myocardial infarction Discharge Exam Constitutional well developed and well nourished; no acute distress Eyes PERRL, conjunctivae normal, anicteric sclerae ENMT Mouth: oral mucous membranes not dry Respiratory normal respiratory effort; no respiratory distress and no labored breathing Auscultation: lungs clear to auscultation bilaterally; no crackles, no rales, no rhonchi and no wheezes Cardiovascular Rate/Rhythm: regular rate and regular rhythm Heart Sounds: no murmur and no cardiac rub Vessels: normal peripheral pulses and radial pulses present; no JVD Extremities: no edema Gastrointestinal (Abdomen) Inspection/Auscultation: abdomen normal to inspection and normal bowel sounds; abdomen not distended Percussion/Palpation: abdomen soft; abdomen nontender, no guarding, abdomen not rigid and no hepatosplenomegaly Musculoskeletal Head/Neck/Chest: normocephalic and head atraumatic Spine: no cervical spinal tenderness, no cervical muscular tenderness, no thoracic spinal tenderness and no lumbar spinal tenderness Skin no rashes, warm and dry Neurologic CN's II-XI intact bilaterally and moves all extremities Motor/Sensory: no tremor and no sensory deficit Psychiatric Orientation: alert, oriented to person, oriented to place and oriented to time Apperance: appropriately groomed; not disheveled Affect: euthymic affect; no anxious affect and no tearful affect Discharge Data Allergies Allergy/AdvReac Type Severity Reaction Status Date / Time Sulfa (Sulfonamide Allergy Unknown Unknown Verified 05/20/20 15:51 Antibiotics) Consultations 05/20/20 15:36 Consult Cardiac Catheterization Stat 05/20/20 17:48 Consult Cardiac Rehabilitation Routine Consult Room Service [place] Routine Procedures Performed Operation Date: 05/20/20 16:00 Actual Procedures p Aspiration/PCI w/DINESH for Stemi - Gera Luo MD s Cineradiography w/Routine Exam - Gera Luo MD s IVUS Coronary Single Vessel - Gera Luo MD Operation Date: 05/21/20 12:30 Actual Procedures p Drug Eluting Stent SGl Vessel - Gera Luo MD s Drug Eluting Stent each ADDTL Vessel - Gera Luo MD s POBA SGL Vessel - Gera Luo MD s IVUS Coronary Single Vessel - Gera Luo MD s IVUS Coronary each ADDL Vessel - Gera Luo MD s Cineradiography w/Routine Exam - Gera Luo MD s Cath, Coronaries ONLY (no LV) - Gera Luo MD Ordered Studies 05/20/20 15:49 CL Cath Imgs for PACS use only Stat 05/20/20 17:31 CL IVUS Coronary Single Vessel Routine 05/21/20 10:19 CL Cath Imgs for PACS use only Routine 05/21/20 12:28 CL IVUS Coronary Single Vessel Routine Hospital Course (1) Acute ST elevation myocardial infarction (STEMI): Appreciate cardiology management ASA, Brillianta, Atorvastatin Metoprolol and losartan with hold parameters 05-20 2 DINESH to RCA 05-21 2 DINESH to LAD 1 DINESH to diagonal (2) Ischemic cardiomyopathy: EF 45% 05-21 can resume losartan tomorrow, low dose metoprolol per cardio (3) Hypotension: BP 80/55 when seen, patient alert and orientated. Discussed with ICU team to appropriately manage. 3 BP 98/67 off pressors (4) Hypertension: Metoprolol and losartan as above with hold parameters Patient reports usual fluctuating blood pressure usually at home (5) Hypercholesteremia: Lipid panel in AM Atorvastatin 80mg PO HS (6) Acid reflux: None currently. Monitor Total Time Total Time Spent Total Time Spent (In Minutes): 35 Total Time Includes: Examination of the Patient, Discharge Planning, Medication Reconciliation and Communication With Other Providers Discharge Plan Discharge Items Patient Disposition: Home - Self-Care Reason For Visit: ACUTE [place] Discharge Diagnosis: acute myocardial infarction Condition on Discharge: Good Activity: Resume your previous activity Non-emergency contact: Primary Care Provider Call non-emergency contact if: you have any medication questions Follow-up/Referrals: Dallas Vincent III, MD [Primary Care Provider] - (within one week of disch arge) Gera Luo MD [Physician] - (within 2 weeks of discharge) Diet: Heart Healthy Addtl Attending Provider Instructions: You were treated for myocardial infarction (heart attack) You had two stents placed in your right coronary artery You had two stents placed in your left anterior descending artery You had one stent placed in your diagonal artery Your stents are drug eluting, so you need to take medications to prevent clot formation within the stent You need to continue to take aspirin and ticagrelor Start taking metoprolol tartrate 12.5mg twice daily Start taking lipitor 80mg daily Pending Studies at Discharge: No Stand-Alone Forms: My [employer], Smoking Cessation Medications and DC Order Prescriptions: New Brilinta 90 mg Tablet 90 mg PO BID 90 Days Qty: 180 RF: 0 atorvastatin 40 mg Tablet 80 mg PO QAM 90 Days Qty: 180 RF: 0 metoprolol tartrate 25 mg Tablet 12.5 mg PO BID 90 Days Qty: 90 RF: 0 nitroglycerin [Nitrostat] 0.4 mg Tablet, Sublingual 0.4 mg sublingual PRN 90 Days Qty: 30 RF: 0 Continued ascorbic acid (vitamin C) 500 mg tablet 500 mg PO QAM RF: 0 aspirin 81 mg tablet,delayed release (DR/EC) 81 mg PO QAM RF: 0 losartan 25 mg tablet 12.5 mg PO QAM RF: 0 Discharge Orders: Discharge Order (Routine); Ordered 05/22/20 Ordered By: Alison Golden Admission Data Admit Date/Time: 05/20/20 17:48 Attending Provider: Alison Golden Admit Provider: Gera Luo Primary Care Provider: Dallas Vincent III Other Providers: Gera Luo ; Ta Izaguirre Coding Level of Care Code D/C Day Management >[address] elevation myocardial infarction (STEMI) I21.3 Involved coronary artery: unspecified coronary artery Ischemic cardiomyopathy I25.5 Hypotension I95.9 Hypertension I10 Hypercholesteremia E78.00 Acid reflux K21.9
== END 2020-05-22 16:56 | disposition home or self-care (01) | DRG 246 ==
LOC: ED 15:03 → CC 15:58 → SUATTDRO 17:48 → 1E 17:48
PROC: CLB.CCO (2020-05-21 12:30)
DX: I95.81 Postprocedural hypotension; N18.9 Chronic kidney disease, unspecified; I25.5 Ischemic cardiomyopathy; I21.11 ST elevation (STEMI) myocardial infarction involving right coronary artery; Z79.899 Other long term (current) drug therapy; K21.9 Gastro-esophageal reflux disease without esophagitis; I25.10 Atherosclerotic heart disease of native coronary artery without angina pectoris; I12.9 Hypertensive chronic kidney disease with stage 1 through stage 4 chronic kidney disease, or unspecified chronic kidney disease; R00.1 Bradycardia, unspecified; Z88.2 Allergy status to sulfonamides; Z79.82 Long term (current) use of aspirin; E78.00 Pure hypercholesterolemia, unspecified; Z82.49 Family history of ischemic heart disease and other diseases of the circulatory system